=== PATIENT | male | born 1955 | race Caucasian/White ===

== ENCOUNTER → 2017-02-26 14:24 | Outpatient (CLI) | payer MEDICARE ==
[~2017-02-26 14:24] MED LIST: CENTRUM SILVER1 TA1 PO; GLUCOPHAGE500 MG PO; HYDROCODON-ACE1 EAC7 PO
[2017-02-26 15:13] LABS: BASOPHILS 0.9 % (0-2); EOSINOPHILS 3.4 % (0-7); HEMATOCRIT 40.1 % (42.0-54.0); HEMOGLOBIN 13.9 g/dL (13.5-17.5); IMMATURE GRANULOCYTES 0.2 % (0-5); LYMPHOCYTES 22.6 % (15-50); MCH 32.5 pg (26.0-34.0); MCHC 34.7 g/dL (31.0-37.0); MCV 93.7 fL (80.0-100.0); MEAN PLATELET VOLUME 10.8 fL (7.4-10.4); MONOCYTES 8.4 % (2-11); NEUTROPHILS 64.5 % (40-80); PLATELET COUNT 264 10x3/uL (130-400); RBC 4.28 10x6/uL (4.20-6.10); RDW 12.6 % (11.5-14.5); WBC 5.6 10x3/uL (4.8-10.8)
[2017-02-26 15:32] LABS: CALC OSMOLALITY 279 mosm/kg (275-300); CALCIUM 9.2 mg/dL (8.5-10.1); CARBON DIOXIDE 26.8 mmol/L (21.0-32.0); CHLORIDE - SERUM 104 mmol/L (98-107); CREATININE - SERUM 0.9 mg/dL (0.6-1.3); GLUCOSE 107 mg/dL (74-106); POTASSIUM - SERUM 3.9 mmol/L (3.5-5.1); SODIUM 141 mmol/L (136-145); UREA NITROGEN 11 mg/dL (7-18); eGFR NON AFRICAN AMERICAN > 90 mL/min (90-120)
[2017-02-27 10:19] LABS: HEPATITIS C ANTIBODY <0.1 (0.0-0.9)
[2017-02-27 12:15] LABS: CEA 1.7 ng/mL (0.0-4.7)
[2017-03-07 23:40] VITALS: BMI 34.4
== END | disposition home or self-care (01) ==
LOC: D.LAB 14:24 → D.CT 16:30
PROVIDERS: Surgery
DX: C21.8 Malignant neoplasm of overlapping sites of rectum, anus and anal canal (principal); K43.2 Incisional hernia without obstruction or gangrene; R53.83 Other fatigue

== ENCOUNTER 2017-03-07 08:16 | Inpatient (IN) | payer MEDICARE ==
[~2017-03-07] VITALS: Ht 182.9 cm; Wt 115.0 kg
[~2017-03-07 08:16] MED LIST changes: -HYDROCODON-ACE1 EAC7 PO
[2017-03-07 09:09] VITALS: BP 142/85; BMI 34.4
[2017-03-07 09:22] LABS: INR 0.95 (0.85-1.17); PROTIME 12.5 SECONDS (11.6-15.0)
[2017-03-07 09:33] LABS: BASOPHILS 1.1 % (0-2); EOSINOPHILS 4.3 % (0-7); HEMATOCRIT 39.9 % (42.0-54.0); IMMATURE GRANULOCYTES 0.2 % (0-5); LYMPHOCYTES 23.5 % (15-50); MCH 32.8 pg (26.0-34.0); MCHC 35.1 g/dL (31.0-37.0); MCV 93.4 fL (80.0-100.0); MONOCYTES 7.5 % (2-11); NEUTROPHILS 63.4 % (40-80); PLATELET COUNT 268 10x3/uL (130-400); RBC 4.27 10x6/uL (4.20-6.10); RDW 12.5 % (11.5-14.5); WBC 4.4 10x3/uL (4.8-10.8)
--- NOTE | 2017-03-07 14:23 | NUR ---
1423 ATTEMPTED TO FIND FAMILY NOT IN PATIENTS ROOM OR WAITING ROOMS
--- NOTE | 2017-03-07 15:27 | NUR ---
PeggyN. RELIEVED AT 1521
--- NOTE | 2017-03-07 17:12 | NUR ---
1705 BACK FROM LAPAROSCOPIC HERNIA REPAIR. ALERT AND ORIENTED. PAIN LEVEL TO ABDOMEN DEEP TIGHTNES PAIN. HAS LEFT COLOSTOMY BAG THAT WAS CHANGED IN SURGERY. 7 [address] RT AND LT ABDOMEN DERMA BONDED NO BLEEDING. C/L IN REACH.
--- NOTE | 2017-03-07 17:25 | NUR ---
1710 OFFERED PAIN MED DENIED NEED FOR PAIN MED STATED " THE PAIN IS ACTUALLY BETTER MORE OF A TIGHTNESS." STATED JUST WANTS TO CLOSE EYES ICE CHIPS GIVEN.
--- NOTE | 2017-03-07 17:35 | NUR ---
1725 TEMP CHECKED 98.1.
--- NOTE | 2017-03-07 17:51 | NUR ---
1735 EYES CLOSED EASILY ROUSES TO VERBALLY STIMULI WANTS TO SLEEP OFFERED CLEAR LIQUIDS REFUSES WANTS TO SLEEP.
--- NOTE | 2017-03-07 18:04 | NUR ---
1803 PAIN LEVEL IS A 4 STATES NO PAIN LONG HE DOESN'T MOVE. 4 WITH MOVEMENT TIGHTNESS ACHY IN ABDOMEN. OFFERED PAIN MEDS BUT DENIED THE NEED FOR THEM TOOK IN SOME CLEAR LIQUIDS WATER. 30 CC. ASSISTED WITH URINE AND VOIDED 800 CC YELLOW URINE. COLOR PINK. INCISION SITES WITH NO BLEEDING.
--- NOTE | 2017-03-07 18:36 | NUR ---
1829 MEDICATED WITH TORODOL 15MG FOR PAIN.
--- NOTE | 2017-03-07 18:47 | NUR ---
1747 PAIN LEVEL 4.
--- NOTE | 2017-03-07 18:48 | NUR ---
1747 TEMP 98.4.
--- NOTE | 2017-03-07 19:09 | NUR ---
1847 pain level a 3, after torodol,dozing with eyes closed.
--- NOTE | 2017-03-07 19:20 | NUR ---
1914 eyes closed no distress noted.
--- NOTE | 2017-03-07 19:28 | NUR ---
192 repositioned in bed propped to left side. encouraged to cough and deep breathe.
--- NOTE | 2017-03-07 19:41 | NUR ---
1935 PT TOOK OUT PILLOWN THAT HAD HIM PROPPED OVER STATED WAS UNCOMFORTABLE THAT WAY. TOLD PATIENT NEEDS TO TURN EVERY 2 HOURS TO PREVENT FROM GETTING BED SORES AND COUGH DEEP BREATHE OFTEN TO NOT GET PNEUMONIA POST OP. TOOK IN SOME LEMONLIME OFFERED ADA REFUSED. TEMP 98.5 ORAL.
--- NOTE | 2017-03-07 19:53 | NUR ---
1952 REPORT TO DIANN HARRISON R.N.
--- NOTE | 2017-03-07 20:19 | NUR ---
2012 TRANSFERRED TO ROOM 2237.
--- NOTE | 2017-03-07 23:12 | OP ---
PATIENT NAME: REMIGIO BEARD MEDICAL RECORD: [id number] :[birth year] LOCATION:[facility] ADMISSION DATE:03/07/17 SURGEON: MARY SMALLS MD DATE OF OPERATION: 03/07/2017 DATE OF OPERATION: 03/07/2017 SURGEON: Mary Smalls MD PREOPERATIVE DIAGNOSES: 1. Parastomal hernia. 2. History of rectal cancer. POSTOPERATIVE DIAGNOSES: 1. Parastomal hernia. 2. History of rectal cancer. PROCEDURE PERFORMED: 1. Laparoscopic parastomal hernia repair with Oradell mesh. 2. Laparoscopic lysis of adhesions. ANESTHESIA: General. COMPLICATIONS: None. SPECIMENS: None. Case was clean. ESTIMATED BLOOD LOSS: 50 cc. OPERATIVE COURSE: After consent was obtained, the patient was taken to the operating room and placed in the supine position on the operating table. Next, general anesthesia was given via endotracheal intubation. Thereafter, a timeout was performed, confirmed the correct patient and procedure. The abdomen was prepped and draped in typical sterile fashion and the ostomy was covered with a sterile Ray-Alexey and Ioban dressing. Local anesthetic was injected into right upper quadrant and midclavicular line. A stab incision was made with 11-blade scalpel. Using a 5-mm bladeless optical trocar, the abdomen was entered under direct laparoscopic vision. Adequate pneumoperitoneum was achieved. The abdominal cavity was inspected. No evidence of bowel injury. No evidence of bleeding. Two additional trocars were then placed under direct laparoscopic vision, two 5-mm trocars into the right lower and right medial quadrants. Next, laparoscopic lysis of adhesions was performed. The patient had a previous abdominal perineal resection for history of rectal cancer. The patient had significant adhesions at the midline incision as well as a large hernia sac at the parastomal hernia. Greater than 50% of the case was spent on laparoscopic lysis of adhesions as well as excision of the hernia sac at the parastomal hernia. This was performed with a combination of blunt dissection, sharp scissor dissection as well as Harmonic scalpel. Once the adhesions were cleared from the anterior abdominal wall, #1 Prolene on a Ankur-Chary was used to reapproximate the hernia defect around the ostomy with interrupted [id number]. Once the hernia defect was loosely reapproximated, a laparoscopic Sugarbaker parastomal hernia repair was performed using Oradell DualMesh. Stay sutures were placed on the DualMesh. The mesh was placed in the OPERATIVE REPORT [id number] REMIGIO BEARD abdomen using the Ankur-Chary suture passer and the sutures were passed transabdominally and the mesh was loosely placed along the colon, ascending colon, the colostomy out laterally. The remaining portion of the mesh was secured with the ProTack device, making sure to place the mesh with minimal tautness over the colon. Once this was complete, the abdominal cavity was copiously irrigated and suctioned. The small bowel was run from the terminal ileum to the ligament of Treitz. There was no evidence of bowel injury, no evidence of bleeding, no evidence of bile leakage or succus. The abdomen was again suctioned and irrigated. At this time, all remaining instruments were removed. The abdomen was desufflated. Trocars were removed. Skin incisions were closed with 4-0 Monocryl, Mastisol and Steri-Strips. At the end of the case, all needle and instrument counts were correct. No complications occurred. The patient was extubated and transferred to the PACU in stable condition. TRANSINT:[id number] Voice Confirmation ID: [id number] DOCUMENT ID: [id number] MARY SMALLS MD at 2312 CC: [id number] DICTATION DATE: 03/07/17 155 OIL SEPARATOR: 03/07/17 1709 ADM IN [place] [id number] [place] [address]
[2017-03-07 23:40] VITALS: BP 153/90; Ht 182.9 cm; Wt 115.0 kg
[2017-03-08 01:20] VITALS: BP 147/82
[2017-03-08 05:25] LABS: BASOPHILS 0.4 % (0-2); EOSINOPHILS 1.5 % (0-7); HEMATOCRIT 38.2 % (42.0-54.0); HEMOGLOBIN 12.8 g/dL (13.5-17.5); IMMATURE GRANULOCYTES 0.3 % (0-5); LYMPHOCYTES 9.8 % (15-50); MCH 31.4 pg (26.0-34.0); MCHC 33.5 g/dL (31.0-37.0); MCV 93.9 fL (80.0-100.0); MEAN PLATELET VOLUME 10.6 fL (7.4-10.4); MONOCYTES 8.5 % (2-11); NEUTROPHILS 79.5 % (40-80); PLATELET COUNT 253 10x3/uL (130-400); RBC 4.07 10x6/uL (4.20-6.10); RDW 12.5 % (11.5-14.5)
[2017-03-08 05:35] LABS: WBC 7.3 10x3/uL (4.8-10.8)
[2017-03-08 05:45] LABS: ALBUMIN 2.9 g/dL (3.4-5.0); ALKALINE PHOSPHATASE 54 U/L (46-116); ALT (SGPT) 32 U/L (10-68); CALC OSMOLALITY 276 mosm/kg (275-300); CALCIUM 8.1 mg/dL (8.5-10.1); CHLORIDE - SERUM 104 mmol/L (98-107); CREATININE - SERUM 0.9 mg/dL (0.6-1.3); GLUCOSE 128 mg/dL (74-106); POTASSIUM - SERUM 3.6 mmol/L (3.5-5.1); SODIUM 138 mmol/L (136-145); UREA NITROGEN 9 mg/dL (7-18); eGFR NON AFRICAN AMERICAN > 90 mL/min (90-120)
[2017-03-08 05:48] VITALS: BP 166/92
--- NOTE | 2017-03-08 06:30 | NUR ---
REPORT RECIEVED, ASSUMED CARE OF PT. RESTING, EASILY AROUSED. NO NEEDS VOICED AT THIS TIME. L FOREARM IV INFUSING FLUIDS ORDERED, DRSG C/D/I. BED IN LOWEST POSITION, SIDE RAILS UP X 2, CALL LIGHT WITHIN REACH.
[2017-03-08 09:42] VITALS: BP 166/94
--- NOTE | 2017-03-08 10:17 | NUR ---
Patient Name: REMIGIO BEARD Admission Status: Elective Accout number: [id number] Admission Date: 03-07-2017 : 1955 Admission Diagnosis: Attending: MARY SMALLS Current LOS: 1 Anticipated DC Date: 03-12-2017 Planned Disposition: Home Primary Insurance: MEDICARE A & B Discharge Planning Comments: CM MET WITH PATIENT REGARDING D/C NEEDS AND PLANS. PATIENT STATED HE LIVES WITH HIS IN A [place] WHILE HOUSE IS BEING RENOVATED. PATIENT HAS A RAMP TO ENTER HOME AND HAS 3 STEPS INSIDE. PATIENT IS INDEPENDENT WITH HIS CARE AND HAS A WALKER AT HOME. PATIENTS PCP IS DR. ARNOLD IN [place] AND PHARMACY IS [facility]. PATIENT IS REFUSING HOME HEALTH. CM WILL CONTINUE TO FOLLOW PATIENT WITH D/C NEEDS AND PLANS. PCP DR[facility]- [phone] YANELIS () [phone] Quantometer Operator: Carolinegloria Sanabriamel Is the patient Alert and Oriented? Yes 0 * How many steps to enter\exit or inside your home? 3 W/RAILS 0 * PCP DR. CLAYTON BRAMBILA 0 * Pharmacy [facility] 0 * Preadmission Environment Home with Family 0 * ADLs Independent 0 * Equipment Walker 0 * List name and contact numbers for known caregivers / representatives who currently or will assist patient after discharge: YANELIS () [phone] 0 * Community resources currently utilized None 0 * Additional services required to return to the preadmission environment? Yes 0 * Can the patient safely return to the preadmission environment? Yes 0 * Has this patient been hospitalized within the prior 30 days at any hospital? No 0 Grand Total: 0
[2017-03-08 13:05] VITALS: BP 140/82
[2017-03-08 16:00] VITALS: BP 166/92
[2017-03-08 21:20] VITALS: BP 144/83
[2017-03-09 00:56] VITALS: BP 174/88
--- NOTE | 2017-03-09 03:44 | NUR ---
ASSESSED, AT THE BEGINNING OF THE SHIFT. VERY PLEASANT, ABLE TO VERBALIZE NEEDS. HE HAS A COLOSTOMY IN PLACE WHICH HE IS HAVING A LOT OF AIR IN AND KEEPS IT BURPED. THERE IS A URINAL AT THE BEDSIDE WHICH HE USES. AT THE BEGINNING OF THE SHIFT HE WAS IN A CHAIR FOR ABOUT AN HOUR AND THEN WE WALKED AROUND THE NURSES STATION THREE TIMES. WHERE HE HAD HIS HERNIA REPAIR HAS ABOUT SEVEN INSIONS SITES OF VARIOUS SIZES WHICH ALL LOOK GOOD. HE DID HAVE A LOW GRAD TEMP AT MIDNIGHT AND WE WILL ADRESS IT IS IT IS HIGHER AT THE 4 OCLOCK VITAL SIGNS. THE BED IS LOW, RAILS UP X'S 2 WITH THE CALL LIGHT AT HAND.
[2017-03-09 04:52] VITALS: BP 167/92
--- NOTE | 2017-03-09 07:10 | NUR ---
REPORT RECEIVED, ASSUMED CARE OF PT. SITTING UP IN CHAIR, RESTING, EASILY AROUSED. L FOREARM IV INFUSING ORDERED, DRSG C/D/I. L COLOSTOMY IN PLACE. NO NEEDS VOICED AT THIS TIME.
[2017-03-09 08:36] VITALS: BP 146/91
--- NOTE | 2017-03-09 10:30 | NUR ---
PT AMBULATED X 5 LAPS AROUND NURSES STATION
[2017-03-09] MEDS ORDERED: HYDROCODON-ACE1 EAC7 PO (11:31)
[2017-03-09 12:14] VITALS: BP 155/85
--- NOTE | 2017-03-09 12:28 | NUR ---
CM REASSESSMENT NOTE: PATIENT IS DISCHARGING BACK HOME TODAY/SON DRIVING HIM. PATIENT REFUSED HOME HEALTH AND HAD NO OTHER NEEDS FOR DISCHARGE.
--- NOTE | 2017-03-09 13:00 | NUR ---
L FOREARM IV D/C'D, BLEED CONTROL, BANDAGE APPLIED.
--- NOTE | 2017-03-09 13:06 | NUR ---
DISCHARGE INSTRUCTIONS GIVEN TO PT, VERBALIZED UNDERSTNADING AND SIGNED.
--- NOTE | 2017-03-09 15:24 | NUR ---
PT DISCHARGED FROM FLOOR VIA WHEELCHAIR WITH HOSPITAL STAFF AND FAMILY TO FAMILY VEHICLE. ALL PERSONAL BELONGINGS WITH PT.
== END 2017-03-09 15:25 | disposition home or self-care (01) | DRG 337 ==
LOC: D.SDCHOLD 08:16 → D.MS 08:16 → D.PAN 10:45 → EDSTATUS 10:45 → D.OPS 10:45 → D.SDCHOLD 10:45 → D.MS 20:24
PROVIDERS: Anesthesiology; ADMIT Surgery
PROC: 0DNW4ZZ Release Peritoneum, Percutaneous Endoscopic Approach (ICD-10-PCS; 2017-03-07)
PROC: 0WUF4JZ Supplement Abdominal Wall with Synthetic Substitute, Percutaneous Endoscopic Approach (ICD-10-PCS; principal; 2017-03-07 12:00)
DX: K43.5 Parastomal hernia without obstruction or gangrene (principal); K66.0 Peritoneal adhesions (postprocedural) (postinfection); Z85.048 Personal history of other malignant neoplasm of rectum, rectosigmoid junction, and anus

== ENCOUNTER → 2017-05-03 09:52 | Outpatient (CLI) | payer MEDICARE ==
[2017-03-07 23:40] VITALS: BMI 34.4
[~2017-05-03 09:52] MED LIST changes: +HYDROCODON-ACE1 EAC7 PO
== END | disposition home or self-care (01) ==
LOC: D.CT 09:52
DX: K43.2 Incisional hernia without obstruction or gangrene (principal)

== ENCOUNTER → 2018-07-30 12:22 | Outpatient (CLI) | payer MEDICARE ==
[2017-03-07 23:40] VITALS: BMI 34.4
[~2018-07-30 12:22] MED LIST changes: +AUGMENTIN 875-11 TAB PO; +COZAAR50 MG PO; +FISH OIL 1,0001 CA1 PO; +GLUCOTROL XL 5 M5 MG PO; +LOPRESSOR25 MG PO; +PRAVACHOL20 MG PO
== END | disposition home or self-care (01) ==
LOC: D.CT 12:22
PROVIDERS: ATTEND Surgery
DX: K43.3 Parastomal hernia with obstruction, without gangrene (principal)

== ENCOUNTER 2018-08-02 05:08 | Inpatient (IN) | payer MEDICARE ==
[~2018-08-02] VITALS: Ht 185.4 cm; Wt 75.9 kg
[~2018-08-02 05:08] MED LIST changes: -AUGMENTIN 875-11 TAB PO; -PRAVACHOL20 MG PO
[2018-08-02 05:56] LABS: CALC OSMOLALITY 283 mosm/kg (275-300); CALCIUM 8.7 mg/dL (8.5-10.1); CARBON DIOXIDE 21.9 mmol/L (21.0-32.0); CHLORIDE - SERUM 104 mmol/L (98-107); CREATININE - SERUM 0.8 mg/dL (0.6-1.3); SODIUM 138 mmol/L (136-145); UREA NITROGEN 12 mg/dL (7-18); eGFR NON AFRICAN AMERICAN > 90 mL/min (90-120)
[2018-08-02 05:57] LABS: APTT 25.6 SECONDS (22.8-39.4); BASOPHILS 1.5 % (0-2); EOSINOPHILS 4.7 % (0-7); HEMATOCRIT 41.4 % (42.0-54.0); HEMOGLOBIN 14.5 g/dL (13.5-17.5); IMMATURE GRANULOCYTES 0.4 % (0-5); INR 1.03 (0.85-1.17); MCH 31.7 pg (26.0-34.0); MCV 90.6 fL (80.0-100.0); MEAN PLATELET VOLUME 11.5 fL (7.4-10.4); MONOCYTES 10.9 % (2-11); NEUTROPHILS 64.5 % (40-80); PLATELET COUNT 278 10x3/uL (130-400); RBC 4.57 10x6/uL (4.20-6.10); RDW 12.7 % (11.5-14.5); WBC 5.3 10x3/uL (4.8-10.8)
[2018-08-02 06:01] LABS: GLUCOSE 244 mg/dL (74-106)
[2018-08-02] MEDS ORDERED: PRAVACHOL20 MG PO (06:57)
[2018-08-02 07:19] VITALS: BP 132/83; BMI 35.3
--- NOTE | 2018-08-02 13:59 | NUR ---
PT HAS NG TUBE, CONFIRED VIA AUSCULTATION AND X-RAY. WOUND VAC ON PT'S STOMACH ALARMING DUE TO BLOCKAGE. WOUND CARE NURSE MANISH HOLLIDAY CONTACTED FOR CARE OF SITE.
[2018-08-02 14:43] VITALS: BP 140/90
--- NOTE | 2018-08-02 14:45 | OP ---
PATIENT NAME: REMIGIO BEARD MEDICAL RECORD: [id number] :[birth year] LOCATION:[facility] ADMISSION DATE: SURGEON: MARY SMALLS MD DATE OF OPERATION: 08/02/2018 SURGEON: Mary Smalls MD PREOPERATIVE DIAGNOSES: 1. Recurrent incarcerated parastomal hernia. 2. History of rectal cancer. 3. History of abdominoperineal resection. 4. Hypertension. POSTOPERATIVE DIAGNOSES: 1. Incarcerated incisional hernia. 2. Incarcerated parastomal hernia. 3. Significant lysis of adhesions. PROCEDURE PERFORMED: Laparoscopic lysis of adhesions and reduction of incarcerated incisional and parastomal hernia. Laparoscopic mobilization of splenic flexure. Incarcerated incisional hernia repair with Phasix mesh. Relocation of colostomy and negative pressure wound therapy greater than 50 square cm. ANESTHESIA: General. COMPLICATIONS: None. SPECIMENS: Colon, partial colectomy. Case was contaminated. OPERATIVE COURSE: After consent was obtained, the patient was taken to the operating room and placed in the supine position on the operating table. Next, general anesthesia was given via endotracheal intubation after a timeout was performed to confirm the correct patient and procedure. The abdomen was prepped and draped in typical sterile fashion and Ioban dressing was placed. Local anesthetic was injected in the right upper quadrant. Skin incision was made with an 11-blade scalpel. Using a 5-mm bladeless optical trocar, the abdomen was entered under direct laparoscopic vision. Adequate pneumoperitoneum was achieved. The abdominal cavity was inspected. No evidence of bowel injury or bleeding. Two additional 5-mm trocars were placed in the right lateral and lower quadrants under direct laparoscopic vision. Extensive lysis of adhesions was performed. There were 2 distinct hernias. There was an incarcerated incisional midline hernia with multiple loops of small bowel, which were sharply dissected using Metzenbaum scissors. The previous parastomal hernia repair was no longer intact. The mesh had completely ripped out of the abdominal wall along the entire length of the lower border of the mesh. There were 2 loops of incarcerated small bowel alongside a parastomal hernia consistent with the preoperative CT findings. The incisional hernia was also noted on preoperative CT scanning. At this time, the hernia defect, there was a small bridge of intact fascia between the midline incisional hernia defect and the parastomal and the ostomy site. At this time, it was decided that this defect could not be reapproximated and closed laparoscopically. At this time, we decided to convert the case to laparotomy. The lower midline incision was made from the umbilicus OPERATIVE REPORT [id number] REMIGIO BEARD to the pubic tubercle using a 15-blade scalpel. Dissection continued with electrocautery until the fascia was identified. The fascia was incised with electrocautery and the remaining portion of the fascia was then opened under direct vision. Next, the colostomy site was taken down. A stapler was fired across the colostomy. Significant additional lysis of adhesions was performed to free the colostomy up from the parastomal hernia. Once this was complete, it was retracted into the abdomen. Prior to laparotomy, the left colon was mobilized along the pericolic gutter to the level of the splenic flexure to allow for adequate length on relocation of the colostomy. At this time, the colostomy site was closed with a #1 looped PDS. Abdominal flaps were created. The subcutaneous tissue was dissected off the anterior fascia, 10 cm in all directions. All old previous hernia sacs were excised. The small bowel was run from the ligament of Treitz to the terminal ileum. There was no small bowel injuries noted, this was performed twice. Additional interloop lysis of adhesions was performed using sharp Metzenbaum scissor dissection. The abdomen was then copiously irrigated with 3 liters of warm normal saline and a new colostomy site was placed in the left upper quadrant. Skin incision was made using electrocautery. Subcutaneous tissues dissected using electrocautery. A cruciate incision was made in the fascia. The muscles were gently spread apart. The peritoneum was opened. The colostomy was then delivered through the incision in the left upper quadrant. At this time, after excision of all hernia sacs, the fascia was able to be closed primarily with minimal tension using #1 looped PDS. At this time, Phasix mesh was placed in an onlay fashion across the anterior fascial wall and secured in place using 3-0 Vicryl suture. A wound VAC was placed into the midline incision on top of the Phasix mesh and placed suction with good seal. The colostomy site skin edges were excised. The colostomy site was closed. At this time, the ostomy matured in the left upper quadrant colostomy site using 3-0 Vicryl suture. Staple line was cut off using curved Maya scissors. At the end of the case, all needle and instrument counts were correct. No complications occurred. The patient was transferred to the recovery room in satisfactory condition. TRANSINT:[id number] Voice Confirmation ID: [id number] DOCUMENT ID: [id number] MARY SMALLS MD at 1445 CC: [id number] DICTATION DATE: 08/02/18 1328 SKIN TOGGLER: 08/02/18 1438 REG [place] [id number]
--- NOTE | 2018-08-02 14:49 | NUR ---
RECEIVED PT FROM RECOVERY VIA BED TO ROOM 2226. PT RESTING WITH EYES CLOSED. OPENS EYES SPONTANEOUSLY. NG TUBE TO LEFT NARE TO LOW INTERMITTENT SUCTION. O2 @ 4L NC IN PLACE. IV TO LEFT FOREARM PATENT WITHOUT REDNESS OR EDEMA. OSTOMY TO LEFT UPPER QUAD, NO DRAINAGE AT THIS TIME. MIDLINE INCISION FROM UMBILICUS TO PUBIC FANTA INTACT, EDGES WELL APPROXIMATED. TRANSVERSE INCISION TO LEFT LOWER QUAD WITH FANTA INTACT, NO DRAINIAGE, EDGES WELL APPROXIMATED. WOUND VAC INTACT TO INCISION BELOW UMBILICUS DRAINING SEROSANGEOUNOUS DRAINAGE. F/C PATENT TO GRAVITY DRAINING YELLOW URINE. ORIENTED TO ROOM, CL, AND BED CONTROLS. ENCOURAGED TO CALL WITH NEEDS. CL WITHIN REACH. WILL CONTINUE TO MONITOR.
[2018-08-02 17:30] VITALS: BP 140/90; BMI 35.3
--- NOTE | 2018-08-02 19:47 | NUR ---
RECEIVED REPORT, ASSUMED CARE, SLEEPING, AROUSED EASILY TO VOICE, DENIES NEEDS, BED LOWEST POSITION, WOUND VAC ON, CALL LIGHT IN REACH, WILL CONTINUE POC
[2018-08-02 20:01] VITALS: BP 151/95
[2018-08-03 01:25] VITALS: BP 114/69
--- NOTE | 2018-08-03 04:43 | NUR ---
I have reviewed this patient and I concur with the Shift Assessment completed by the Licensed Practical Nurse today this shift.
[2018-08-03 04:57] VITALS: BP 126/79
[2018-08-03 05:35] LABS: BASOPHILS 0.2 % (0-2); EOSINOPHILS 0.1 % (0-7); HEMATOCRIT 36.8 % (42.0-54.0); HEMOGLOBIN 12.4 g/dL (13.5-17.5); IMMATURE GRANULOCYTES 0.3 % (0-5); LYMPHOCYTES 5.3 % (15-50); MCH 31.6 pg (26.0-34.0); MCHC 33.7 g/dL (31.0-37.0); MEAN PLATELET VOLUME 11.6 fL (7.4-10.4); MONOCYTES 6.2 % (2-11); NEUTROPHILS 87.9 % (40-80); PLATELET COUNT 258 10x3/uL (130-400); RBC 3.93 10x6/uL (4.20-6.10); RDW 12.7 % (11.5-14.5)
[2018-08-03 05:41] LABS: MCV 93.6 fL (80.0-100.0); WBC 10.5 10x3/uL (4.8-10.8)
[2018-08-03 06:18] LABS: ALBUMIN 2.7 g/dL (3.4-5.0); BILIRUBIN - TOTAL 1.35 mg/dL (0.2-1.3); CALCIUM 7.6 mg/dL (8.5-10.1); CARBON DIOXIDE 20.2 mmol/L (21.0-32.0); POTASSIUM - SERUM 4.2 mmol/L (3.5-5.1); PROTEIN - SERUM 6.3 g/dL (6.4-8.2)
[2018-08-03 06:22] LABS: CREATININE - SERUM 1.1 mg/dL (0.6-1.3)
--- NOTE | 2018-08-03 08:00 | NUR ---
ASSESSMENT PER FLOW SHEET. PT IS WITHOUT DISTRESS.MONITOR FOR NEEDS
[2018-08-03 09:06] VITALS: BP 133/80
[2018-08-03 13:53] VITALS: BP 138/83
[2018-08-03 14:50] VITALS: Ht 185.4 cm; Wt 75.9 kg
[2018-08-03 16:24] VITALS: BP 149/90
--- NOTE | 2018-08-03 19:30 | NUR ---
RECEIVED REPORT, ASSUMED CARE, PT VOMITING, NGT NOT SUCTIONING WELL, CALL LIGHT IN REACH, PHENEGRAN OFFERED, BED LOWEST POSITION, WILL CONTINUE TO MONITOR
--- NOTE | 2018-08-03 19:32 | NUR ---
REMAINS WITHOUT NEEDS,WITHOUT CHANGE. CONT PLAN OF CARE
[2018-08-03 19:35] VITALS: BP 149/96
[2018-08-04] VITALS: BP 158/98
--- NOTE | 2018-08-04 02:12 | NUR ---
PT VOMITING AGAIN, 200CC
--- NOTE | 2018-08-04 03:15 | NUR ---
I have reviewed this patient and I concur with the Shift Assessment completed by the Licensed Practical Nurse today this shift.
[2018-08-04 04:00] VITALS: BP 148/100
[2018-08-04 04:44] LABS: BASOPHILS 0.1 % (0-2); EOSINOPHILS 0.2 % (0-7); HEMATOCRIT 35.6 % (42.0-54.0); HEMOGLOBIN 12.1 g/dL (13.5-17.5); IMMATURE GRANULOCYTES 0.3 % (0-5); LYMPHOCYTES 4.7 % (15-50); MCV 94.2 fL (80.0-100.0); MEAN PLATELET VOLUME 11.4 fL (7.4-10.4); MONOCYTES 6.5 % (2-11); NEUTROPHILS 88.2 % (40-80); PLATELET COUNT 262 10x3/uL (130-400); RBC 3.78 10x6/uL (4.20-6.10); RDW 12.9 % (11.5-14.5); WBC 11.2 10x3/uL (4.8-10.8)
[2018-08-04 04:58] LABS: ANION GAP 19.4 mmol/L (8-16); CALCIUM 8.7 mg/dL (8.5-10.1); CARBON DIOXIDE 22.6 mmol/L (21.0-32.0); CREATININE - SERUM 1.1 mg/dL (0.6-1.3)
--- NOTE | 2018-08-04 05:09 | NUR ---
VOMITED 300ML OUT, NGT KEEPS GETTING CLOGGED
--- NOTE | 2018-08-04 06:07 | NUR ---
VOMITED 300ML, NGT HAS NO RISIDUAL, PT STATED HE WAS CHOKING ON PHLEM WHEN VOMITING
--- NOTE | 2018-08-04 08:00 | NUR ---
ASSESSMENT PER FLOW SHEET. PT IS WITHOUT DISTRESS. NGT TO LIWS AND PULLING DARK DRAINAGE IN CANISTER, APROX 600CC. PT STATES FEELING BETTER THIS AM.
--- NOTE | 2018-08-04 09:00 | NUR ---
DECLINES IV MEDS,SAYS THEY MAKE HIM SICK. DECLINES LOVENOX INJECTION.
[2018-08-04 09:08] VITALS: BP 138/88
--- NOTE | 2018-08-04 11:22 | NUR ---
1100CC OF DARK COLORED DRAINAGE EMPTIED FROM NG CANISTER.
--- NOTE | 2018-08-04 12:11 | NUR ---
PT UP AT BEDSIDE. HE IS WITHOUT DISTRESS. SAYS NGT IS NOT PULLING OUT ENOUGH. ANOTHER 400CC OF DARK DRAINAGE IN CANISTER. COUGHING UP CLEAR THICK MUCOUS. IS TO BEDSIDE AND INSTRUCTED.SCD'S IN PLACE,BUT PATIENT COMPLAINING OF HOSES. MONITOR
[2018-08-04 13:36] VITALS: BP 145/94
--- NOTE | 2018-08-04 15:18 | NUR ---
SITTING UP IN BED,WITHOUT DISTRESS.MONITOR FOR NEEDS
--- NOTE | 2018-08-04 17:44 | NUR ---
PT IS SLEEPING WITHOUT SIGNS OF DISTRESS.REMAINS WITHOUT CHANGE FROM INITIAL SHIFT ASSESSMENT.CONT PLAN OF CARE
[2018-08-04 18:14] VITALS: BP 156/95
--- NOTE | 2018-08-04 19:30 | NUR ---
RECEIVED REPORT, ASSUMED CARE, A&O, NGT LIWS DARK RED OUT PUT, DENIES NEEDS, BED LOWEST POSITION, CALL LIGHT IN REACH, WILL CONTINUE TO MONITOR
[2018-08-04 20:00] VITALS: BP 150/88
[2018-08-05] VITALS: BP 148/91
[2018-08-05 04:00] VITALS: BP 156/93
--- NOTE | 2018-08-05 04:00 | NUR ---
I have reviewed this patient and I concur with the Shift Assessment completed by the Licensed Practical Nurse today this shift.
[2018-08-05 06:39] LABS: ANION GAP 25.3 mmol/L (8-16); CARBON DIOXIDE 25.1 mmol/L (21.0-32.0); POTASSIUM - SERUM 3.4 mmol/L (3.5-5.1)
[2018-08-05 06:45] LABS: CREATININE - SERUM 1.5 mg/dL (0.6-1.3)
--- NOTE | 2018-08-05 07:42 | NUR ---
PT RESTING IN BED WITH HOB ELEVATED. REPORTS PAIN 4/10 AT THIS TIME. NG TO TO RIGHT NARE TO LOW INTERMITTENT SUCTIONING, DRAINING DARK DRAINAGE. HR AT THIS TIME 130 PRN MEDICATIONS ADMINISTERED PER MD ORDERS, BP 160/102 PRN BP MEDICATION ADMINISTERED PER MD ORDER. IV TO LEFT WRIST WITH NS BOLUS INFUSING VIA PUMP AT THIS TIME. LAP INCISION TO RIGHT LOWER QUAD INTACT, MIDLINE INCICISION WITH WOUND VAC IN PLACE, TRANSVERSE INCISION INTACT WITH FANTA. COLOSTOMY PINK AND PATENT WITH SMALL AMOUNT OF DARK GREEN DRAINAGE. F/C PATENT TO GRAVITY. DENIES FURTHER NEEDS AT THIS TIME. CL WITHIN REACH. ENCOURAGED TO CALL WITH NEEDS. CONTINUE POC
[2018-08-05 07:44] LABS: BASOPHILS 0.1 % (0-2); EOSINOPHILS 0.1 % (0-7); HEMATOCRIT 38.5 % (42.0-54.0); HEMOGLOBIN 12.6 g/dL (13.5-17.5); IMMATURE GRANULOCYTES 0.3 % (0-5); LYMPHOCYTES 3.9 % (15-50); MCH 31.6 pg (26.0-34.0); MCHC 32.7 g/dL (31.0-37.0); MONOCYTES 4.7 % (2-11); NEUTROPHILS 90.9 % (40-80); RBC 3.99 10x6/uL (4.20-6.10); RDW 13.7 % (11.5-14.5)
[2018-08-05 07:45] LABS: MCV 96.5 fL (80.0-100.0); PLATELET COUNT 373 10x3/uL (130-400); WBC 14.8 10x3/uL (4.8-10.8)
[2018-08-05 09:01] VITALS: BP 155/100
[2018-08-05 12:57] VITALS: BP 131/86
--- NOTE | 2018-08-05 13:05 | NUR ---
Wound vac dressing change with Dr. Lozano Abdominal incision measures 15cm x 20cm x 8cm (total) outer incision 7cm x5cm Wound bed is red and has moderate amount of serosanguinous drainage. No odor. 1 piece of black foam was used. Settings: -125mmgh moderate continuous Pt tolerated well.
--- NOTE | 2018-08-05 14:18 | NUR ---
NUTRITION F//U PT REMAINS NPO WITH NG TUBE. WILL PROVIDE DIET WHEN ADVANCED, MONITOR PT PROGRESS. RD FOLLOWING
[2018-08-05 16:38] VITALS: BP 123/81
[2018-08-05 19:18] LABS: ANION GAP 17.2 mmol/L (8-16); CALCIUM 9.9 mg/dL (8.5-10.1); CARBON DIOXIDE 30.4 mmol/L (21.0-32.0); CREATININE - SERUM 2.2 mg/dL (0.6-1.3)
[2018-08-05 19:22] LABS: POTASSIUM - SERUM 2.6 mmol/L (3.5-5.1)
[2018-08-05 20:00] VITALS: BP 123/86
[2018-08-05 23:27] LABS: CALCIUM 9.7 mg/dL (8.5-10.1); CARBON DIOXIDE 29.5 mmol/L (21.0-32.0); CREATININE - SERUM 2.6 mg/dL (0.6-1.3)
[2018-08-05 23:29] LABS: ANION GAP 18.4 mmol/L (8-16)
[2018-08-05 23:34] LABS: POTASSIUM - SERUM 2.9 mmol/L (3.5-5.1)
[2018-08-06 04:00] VITALS: BP 130/76
--- NOTE | 2018-08-06 04:41 | NUR ---
REC'D. IN BED NG RIGHT NARE WITH DARK BROWNISH TINGED DRAINAGE NOTED IN CANISTER.CONFUSED TO TIME SITUATION.IV LEAKING.REFUSING TO LET NURSE ASSESS. STATES CARDIAC DOC TOLD ME TO NEVER NEVER TO TAKE POTASSIUM.CALLED AND TOLD THAT NURSES ARE TRYING TO GIVE ME STUFF THAT I DON'T WANT
--- NOTE | 2018-08-06 06:13 | NUR ---
PATIENT STILL ANXIOUS CALLED NRSG STATES PATIENT CALLED HER WE ARE GOING TO ADMINISTER POTASSIUM TO KILL HIM THATS WHY THERE IS WATER IN THE SHOWER. EXPLAINED TO K+ LEVEL IS LOW AND THATS WHY HE'S GETTING POTASSIUM.IV LEAKING AT SITE RESTARTED VIA TERRY HOLLIDAY LEFT UPPER ARM X1 STICK 20G
[2018-08-06 08:46] LABS: BASOPHILS 0.1 % (0-2); EOSINOPHILS 0 % (0-7); HEMATOCRIT 35.5 % (42.0-54.0); HEMOGLOBIN 11.8 g/dL (13.5-17.5); IMMATURE GRANULOCYTES 0.4 % (0-5); LYMPHOCYTES 3.9 % (15-50); MCH 32.2 pg (26.0-34.0); MCHC 33.2 g/dL (31.0-37.0); MCV 96.7 fL (80.0-100.0); MONOCYTES 8.5 % (2-11); NEUTROPHILS 87.1 % (40-80); PLATELET COUNT 360 10x3/uL (130-400); RBC 3.67 10x6/uL (4.20-6.10); RDW 13.9 % (11.5-14.5); WBC 13.7 10x3/uL (4.8-10.8)
[2018-08-06 08:54] LABS: CALCIUM 9.4 mg/dL (8.5-10.1); CARBON DIOXIDE 30.5 mmol/L (21.0-32.0)
[2018-08-06 09:04] LABS: ANION GAP 16.5 mmol/L (8-16); CREATININE - SERUM 3.6 mg/dL (0.6-1.3)
[2018-08-06 09:34] VITALS: BP 132/80
--- NOTE | 2018-08-06 13:29 | MORECARE ---
CASE MANAGEMENT DISCHARGE SUMMARY PATIENT: REMIGIO SANDERS UNIT: [id number] ADM DATE: 08/03/18 AGE: 63 : 59 SEX: M ROOM/BED: D.2227 AUTHOR: JOSEY,DOC PHYSICIAN: REFERRING PHYSICIAN: MARY SMALLS MD DATE OF SERVICE: 08/06/18 Discharge Plan Patient Name: REMIGIO SANDERS Facility: [facility]:[place] : 1955 Planned Disposition: Home with Home Health Anticipated Discharge Date: Discharge Date: Expected LOS: Initial Reviewer: [email or web address] Initial Review Date: 08/06/2018 Generated: 08/06/18 2:29 pm Comments DCP- Discharge Planning Updated by [email or web address]: Franca Campbell on 08/06/18 12:[address] Patient Name: REMIGIO SANDERS Admission Status: Elective Accout number: [id number] Admission Date: 08-03-2018 : 1955 Admission Diagnosis:PARASTOMAL HERNIA WITH OBSTRUCTION, WITHOUT GANGRENE Attending: MARY SMALLS Current LOS: 3 Anticipated DC Date: Planned Disposition: Home with Home Health Primary Insurance: MEDICARE A & B Discharge Planning Comments: CM met with patient to discuss discharge planning, he is alone in the room. States he is unable to answer any of my questions because of his sore throat and asks me to call his . I called his for discharge planning. She states he lives independently with her. She states their son and daughter in law live on the same property in their own house. I discussed the availability of rehab services, home health and additional DME if needed. They already get ostomy supplies from [employer] in the mail. She states the plan right now is to go home with [employer] [facility] in [place]. CM will set this up closer to time. JOHN placed on chart. CM will continue to follow and assist with discharge planning/needs. Administrative Assistant: Franca Campbell DCPIA - Discharge Planning Initial Assessment Updated by [email or web address]: Franca Campbell on 08/06/18 1:25 pm * Is the patient Alert and Oriented? Yes * How many steps to enter\exit or inside your home? 0/0 * PCP Livia Lopez at [facility] in [place] * Pharmacy [facility] in [facility] * Preadmission Environment Home with Family * ADLs Independent * Equipment Ostomy Supplies * List name and contact numbers for known caregivers / representatives who currently or will assist patient after discharge: Gela Sanders - - [phone] * Verbal permission to speak to the caregivers and representatives has been obtained from the patient. Yes * Community resources currently utilized None * Please name any agencies selected above. Mail order from [employer] for Ostomy supplies * Additional services required to return to the preadmission environment? Yes * Can the patient safely return to the preadmission environment? Yes * Has this patient been hospitalized within the prior 30 days at any hospital? No Patient Name: REMIGIO SANDERS Page [id number] at 1329 All edits/amendments must be made on the electronic document DICTATION DATE: 08/06/181328 ADMINISTRATIVE ASSISTANT: AMITA 08/06/18 1329 RPT#: [id number] DC DATE: STATUS: ADM IN [facility] [address] [place] [address] END OF REPORT
[2018-08-06 15:13] LABS: CARBON DIOXIDE 29.4 mmol/L (21.0-32.0); CREATININE - SERUM 4.3 mg/dL (0.6-1.3)
[2018-08-06 15:15] LABS: ANION GAP 17.3 mmol/L (8-16)
[2018-08-06 15:16] LABS: POTASSIUM - SERUM 2.7 mmol/L (3.5-5.1)
--- NOTE | 2018-08-06 16:25 | NUR ---
SPOKE WITH EDITH FIGUEROA AND EXPLAINED PATIENT HAS TAKEN 3 K+ RIDERS ALREADY TODAY. STATED TO GIVE THE REST OF THE RIDERS AND TO CHECK POTASSIUM PER PROTCALL THEN TO CALL BACK WITH RESULTS.
[2018-08-06 18:14] VITALS: BP 127/70
--- NOTE | 2018-08-06 18:55 | NUR ---
PATIENT LESS CONFUSED THIS EVENING. NO COMPLAINTS OR PROBLEMS. IV INTACT AND TRIALYSIS INTACT. BSCDS ON AND WORKING. COMPLETED RIDERS ORDERED. PATIENT RESTING AT THIS TIME. NO SIGNS OF DISTRESS. CALL LIGHT WITHIN REACH.
--- NOTE | 2018-08-06 23:50 | NUR ---
PT REFUSING EVERYTHING SPENT THE LAST 2 HOURS IN ROOM WITH PT AFTER FINALLY AGREEING TO GET OFF PHONE WITH 911 AND AND BELIEVING THAT I'M NOT TRYING TO KILL HIM. PT STILL REFUSED HUMALIN AND FINGER STICK, THIS NURSE IS THE ONLY ONE ALLOWED IN HIS ROOM. BLOOD DRAWN FROM [facility] FOR POTASSIUM LEVEL FOR LAB. FLUIDS AND CALL LIGHT WITHIN REACH. PT CALM IN BED WITH EYES OPEN AT THIS TIME
--- NOTE | 2018-08-07 02:13 | NUR ---
PT CONTINUES TO ONLY ALLOW THIS NURSE IN ROOM, IV'S RUNNING, LAB RESULTS OF 3.1 POTASSIUM LEVEL PRN POTASSIUM GIVEN, IN BED, LOW POSITION, EYES OPEN, FLUIDS AND CALL LIGHT WITHIN REACH, ALLOWED FINGER STICK AT 0000, FSBS 103 NO INSULIN REQUIRED
--- NOTE | 2018-08-07 05:02 | NUR ---
PT REFUSES PROTONIX CONTUALLY ALL SHIFT
[2018-08-07 05:17] LABS: BASOPHILS 0.1 % (0-2); EOSINOPHILS 0.5 % (0-7); HEMATOCRIT 32.1 % (42.0-54.0); HEMOGLOBIN 10.3 g/dL (13.5-17.5); IMMATURE GRANULOCYTES 0.2 % (0-5); LYMPHOCYTES 7.4 % (15-50); MCH 31.5 pg (26.0-34.0); MCHC 32.1 g/dL (31.0-37.0); MCV 98.2 fL (80.0-100.0); MEAN PLATELET VOLUME 11.9 fL (7.4-10.4); MONOCYTES 4.1 % (2-11); NEUTROPHILS 87.7 % (40-80); RBC 3.27 10x6/uL (4.20-6.10); RDW 14.1 % (11.5-14.5)
[2018-08-07 05:55] LABS: PLATELET COUNT 280 10x3/uL (130-400); WBC 8.7 10x3/uL (4.8-10.8)
[2018-08-07 05:57] LABS: CALCIUM 8.4 mg/dL (8.5-10.1); CARBON DIOXIDE 28.8 mmol/L (21.0-32.0); CREATININE - SERUM 4.7 mg/dL (0.6-1.3); POTASSIUM - SERUM 3.2 mmol/L (3.5-5.1)
[2018-08-07 06:26] LABS: ANION GAP 18.4 mmol/L (8-16)
--- NOTE | 2018-08-07 07:39 | NUR ---
I have reviewed this patient and I concur with the Shift Assessment completed by the Licensed Practical Nurse today this shift.
--- NOTE | 2018-08-07 08:00 | NUR ---
PT RESTING IN BED WITH NG TUBE TO RIGHT NARE TO LOW INTERMITTENT SUCTIONING, DRAINING LIGHT GREEN DRAINAGE. IV TO RIGHT JUGULAR, SALINE LOC'D. F/C PATENT TO GRAVITY. DENIES PAIN AT THIS TIME. DENIES FURTHER NEEDS AT THIS TIME. CL WITHIN REACH. ENCOURAGED TO CALL WITH NEEDS. CONTINUE POC
[2018-08-07 09:37] VITALS: BP 162/93
[2018-08-07 14:03] VITALS: BP 148/80
--- NOTE | 2018-08-07 16:03 | NUR ---
Wound vac dressing changed by Dr. Lozano. Measurements remain the same. Pt tolerated well.
[2018-08-07 17:07] VITALS: BP 141/81
[2018-08-07 20:00] VITALS: BP 148/80
--- NOTE | 2018-08-07 20:16 | NUR ---
REPORT CALLED TO MEAGHAN BY KARLY ON PREVIOUS SHIFT, TRANSFERED BY BED BED TO ROOM 2109. MEAGHAN PRESENT CONFIRMS RRECIEVED REPORT
--- NOTE | 2018-08-07 20:35 | NUR ---
PT ARRIVED TO ROOM 2109, PT NG TUBE HOOKED UP TO LIS REPORTED BY NURSE. WOUND VAC INTACT, SUCTION INTACT, HOOKED INTO WALL. PT ON 2L O2 NC WITH HUMIDITY. SCD'S NOTED BUT NOT ON AT THIS TIME. PT RESPECTFULLY DECLINED. FLUIDS ARE D5W AT 125 AND LR WILL CHECK ORDERS THAN CONTINUE. PT HAS A FIRE CREW WORKER CONNECTED TO [facility], NOT CONNECTED TO PT. CHECKED ORDER AND NOTED THAT FIRE CREW WORKER WAS D/C'D ON THE . DISCONNECTED FROM [facility] AND SENT BACK WITH MED SURG NURSE. PT IS AAO, ASSIST WITH GETTING ORIENTED TO ROOM. BEDLOW AND CALL LIGHT IN REACH. PT STATES HE DOESNT NEED ANYTHING ELSE UNTIL ARRIVED. NO S/S OF DISTRESS. WILL CPOC
--- NOTE | 2018-08-07 20:48 | NUR ---
NOTED ORDER FOR REMOVAL OF NGT. PT STATED WAIT UNTIL IS IN ROOM. WILL D/C ONCE ARRIVES.
--- NOTE | 2018-08-07 23:48 | NUR ---
PT STILL NOT HERE. CHECKED IN WITH PT AND LET HIM KNOW AGAIN ABOUT THE ORDER TO REMOVE THE NGT. HE ASKED TO SEE THE ORDER. WILL PRINT IT OUT TO SHOW HIM. STATED NURSE CAN CHECK FSBS AND OTHER MEDICATIONS. PT HAS NO S/S OF DISTRESS. ASSISTED PT WITH CALLING . WILL CPOC
[2018-08-08] VITALS: BP 149/88
--- NOTE | 2018-08-08 | NUR ---
WHILE IN ROOM TO GIVE MEDICATION AND REMOVE NGT. PT WANTED A PRINTED OUT ORDER AND TO SPEAK TO . PT SPOKE TO FOR 10 MINS TO CLARIFY THAT IT IS ALLOWED TO REMOVE NGT. ONCE PT WAS ACCEPTING NURSE TO REMOVE. REMOVED NGT. PLACED SCD'S ON PT AND PLACED FEET ON PILLOWS. PT ON 2L O2 NC. ZENDEJAS NOTED. WOUND VAC INTACT LOWER ABDOMEN MIDLINE. LEFT COLOSTOMY NOTED WITH LARGE STOMA AND DARK THIN STOOL. RIGHT TRIALYSIS DRSG NEEDING CHANGED. PLACED A NEW DRSG. PT COULD NOT EXPLAIN WHY HE HAS A TRIALYSIS AND DID NOT GET IT IN REPORT. WILL CHECK NOTES. PT GIVEN APPLE JUICE AND ICE, SMALL CUP OF BEEF BROTH. CALL LIGHT INREACH. STEVE WILL CPOC
--- NOTE | 2018-08-08 00:09 | NUR ---
PT FSBS IS 193 8 UNITS GIVEN ORDERED. PT GIVEN A SMALL AMOUNT OF BEEF BROTH. STILL EATING ICE CHIPS. WILL TYPE A DIFFERENT NOTE FOR SITUATION IN ROOM. WILL CPOC
[2018-08-08 04:00] VITALS: BP 144/848
[2018-08-08 05:34] LABS: BASOPHILS 0.1 % (0-2); EOSINOPHILS 3.8 % (0-7); HEMATOCRIT 30.4 % (42.0-54.0); HEMOGLOBIN 9.6 g/dL (13.5-17.5); IMMATURE GRANULOCYTES 0.3 % (0-5); LYMPHOCYTES 9.4 % (15-50); MCH 31.4 pg (26.0-34.0); MCHC 31.6 g/dL (31.0-37.0); MCV 99.3 fL (80.0-100.0); MEAN PLATELET VOLUME 11.8 fL (7.4-10.4); MONOCYTES 4.1 % (2-11); NEUTROPHILS 82.3 % (40-80); RBC 3.06 10x6/uL (4.20-6.10); WBC 6.8 10x3/uL (4.8-10.8)
[2018-08-08 05:43] LABS: PLATELET COUNT 221 10x3/uL (130-400)
[2018-08-08 06:10] LABS: CALCIUM 8.1 mg/dL (8.5-10.1); CARBON DIOXIDE 31.6 mmol/L (21.0-32.0); CREATININE - SERUM 4.6 mg/dL (0.6-1.3); POTASSIUM - SERUM 3.1 mmol/L (3.5-5.1)
[2018-08-08 06:12] LABS: ANION GAP 13.5 mmol/L (8-16)
--- NOTE | 2018-08-08 07:05 | NUR ---
PT FSBS 306 20 UNITS GIVEN ORDERED. PT ALERT. CONFUSED. SEEMS MORE ORIENTED THIS MORNING. PT WILL CALL FOR ASSIST WHEN NEEDED. WILL CPOC
--- NOTE | 2018-08-08 07:10 | MORECARE ---
CASE MANAGEMENT DISCHARGE SUMMARY PATIENT: REMIGIO SANDERS UNIT: [id number] ADM DATE: 08/03/18 AGE: 63 : 59 SEX: M ROOM/BED: D.2110 AUTHOR: JOSEY,DOC PHYSICIAN: REFERRING PHYSICIAN: MARY SMALLS MD DATE OF SERVICE: 08/08/18 Discharge Plan Patient Name: REMIGIO SANDERS Facility: [facility]:[place] : 1955 Planned Disposition: Home with Home Health Anticipated Discharge Date: Discharge Date: Expected LOS: Initial Reviewer: [email or web address] Initial Review Date: 08/06/2018 Generated: 08/08/18 8:10 am DCP- Discharge Planning Updated by [id number]: rFanca Campbell on 08/06/18 12:[address] Patient Name: REMIGIO SANDERS Admission Status: Elective Accout number: [id number] Admission Date: 08-03-2018 : 1955 Admission Diagnosis:PARASTOMAL HERNIA WITH OBSTRUCTION, WITHOUT GANGRENE Attending: MARY SMALLS Current LOS: 3 Anticipated DC Date: Planned Disposition: Home with Home Health Primary Insurance: MEDICARE A & B Discharge Planning Comments: CM met with patient to discuss discharge planning, he is alone in the room. States he is unable to answer any of my questions because of his sore throat and asks me to call his . I called his for discharge planning. She states he lives independently with her. She states their son and daughter in law live on the same property in their own house. I discussed the availability of rehab services, home health and additional DME if needed. They already get ostomy supplies from [employer] in the mail. She states the plan right now is to go home with [facility] in [place]. CM will set this up closer to time. JOHN placed on chart. CM will continue to follow and assist with discharge planning/needs. Geotechnical Engineer: Franca Campbell DCPIA - Discharge Planning Initial Assessment Updated by [email or web address]: Franca Campbell on 08/06/18 1:25 pm * Is the patient Alert and Oriented? Yes * How many steps to enter\exit or inside your home? 0/0 * PCP Livia Lopez at [facility] in [place] * Pharmacy [facility] in [place] or [place] * Preadmission Environment Home with Family * ADLs Independent * Equipment Ostomy Supplies * List name and contact numbers for known caregivers / representatives who currently or will assist patient after discharge: Gela Sanders - - [phone] * Verbal permission to speak to the caregivers and representatives has been obtained from the patient. Yes * Community resources currently utilized None * Please name any agencies selected above. Mail order from [employer] for Ostomy supplies * Additional services required to return to the preadmission environment? Yes * Can the patient safely return to the preadmission environment? Yes * Has this patient been hospitalized within the prior 30 days at any hospital? No Coverage Notice Reviewer: [email or web address] Ros Campbell Notice Issued Date-Time: 08/06/2018 13:31 Notice Type: Patient Choice Letter Notice Delivered To: Family Member Relationship to Patient: Spouse Junior Oracle Dba Name: Gela Delivery Method: PHONE - Phone Jes Days: Prior Verbal Notification: Recipient Understood Notice: Yes Recipient Signature: Med Rec Note Co-signed by Attending: Coverage Notice Comment: JOHN for [facility] in [place] Last DP export: 08/06/18 12:29 p Patient Name: REMIGIO SANDERS Page [id number] at 0710 All edits/amendments must be made on the electronic document DICTATION DATE: 08/08/18709 MANAGER OPERATIONAL: AMITA 08/08/18709 RPT#: [id number] DC DATE: STATUS: ADM IN [facility] [address] [place] [address] END OF REPORT
[2018-08-08 08:06] VITALS: BP 149/71
[2018-08-08 11:45] VITALS: BP 140/71
--- NOTE | 2018-08-08 19:30 | NUR ---
AROUSES AND DEMANDS SEVERAL THINGS THAT HE NEEDS ...DID BEST TO PROVIDE ITEMS AND ASSISTED WITH COMFORT. BED LOW AND CALL LIGHT IN REACH. LCTA AND BOWEL SOUNDS WNL COLOSTOMY NOTED
[2018-08-08 20:00] VITALS: BP 136/89
[2018-08-09 04:00] VITALS: BP 154/94
[2018-08-09 05:47] LABS: BASOPHILS 0.2 % (0-2); EOSINOPHILS 8.7 % (0-7); HEMATOCRIT 29.7 % (42.0-54.0); HEMOGLOBIN 9.4 g/dL (13.5-17.5); IMMATURE GRANULOCYTES 0.5 % (0-5); LYMPHOCYTES 8.9 % (15-50); MCH 31.2 pg (26.0-34.0); MCHC 31.6 g/dL (31.0-37.0); MCV 98.7 fL (80.0-100.0); MONOCYTES 5.4 % (2-11); NEUTROPHILS 76.3 % (40-80); PLATELET COUNT 225 10x3/uL (130-400); RBC 3.01 10x6/uL (4.20-6.10); RDW 13.2 % (11.5-14.5); WBC 6.1 10x3/uL (4.8-10.8)
[2018-08-09 06:20] LABS: BILIRUBIN - TOTAL 0.61 mg/dL (0.2-1.3); CARBON DIOXIDE 32.9 mmol/L (21.0-32.0); PROTEIN - SERUM 5.9 g/dL (6.4-8.2)
[2018-08-09 06:38] LABS: ANION GAP 12.9 mmol/L (8-16); CREATININE - SERUM 3.4 mg/dL (0.6-1.3)
[2018-08-09 06:39] LABS: POTASSIUM - SERUM 2.8 mmol/L (3.5-5.1)
[2018-08-09 07:44] VITALS: BP 148/78
[2018-08-09 11:18] VITALS: BP 146/91
--- NOTE | 2018-08-09 13:01 | NUR ---
Nutrition Follow Up: Chart reviewed. Diet has been advanced to full liquids today per surgery. Meds and labs reviewed No new wt Rec continue advancing NAVEED as medically feasible. RD following.
[2018-08-09 16:12] VITALS: BP 114/70
[2018-08-09 17:01] LABS: ANION GAP 13.9 mmol/L (8-16); CALCIUM 7.4 mg/dL (8.5-10.1); CARBON DIOXIDE 30.5 mmol/L (21.0-32.0); CREATININE - SERUM 3.1 mg/dL (0.6-1.3)
[2018-08-09 17:10] LABS: POTASSIUM - SERUM 3.4 mmol/L (3.5-5.1)
--- NOTE | 2018-08-09 19:40 | NUR ---
EVENING ROUNDS COMPLETED. REPORT RECEIVED. PT SITTING UP IN BED WITH EYES CLOSED, RR EVEN AND UNLABORED. OXYGEN AT 2 LITERS BY NASAL CANNULA. NO S/S OF DISTRESS NOTED. WHITE BOARD UPDATED. SIDE RAILS UP X2. CALL LIGHT IN REACH. WILL CTM.
[2018-08-09 20:42] LABS: ANION GAP 9.6 mmol/L (8-16); CALCIUM 7.9 mg/dL (8.5-10.1); CARBON DIOXIDE 33.5 mmol/L (21.0-32.0); POTASSIUM - SERUM 3.1 mmol/L (3.5-5.1)
[2018-08-09 21:01] VITALS: BP 133/70
--- NOTE | 2018-08-09 21:36 | NUR ---
395 BLOOD SUAGR TREATED ORDERED. IX ABX INFUSING. PT SITTING UP IN BED WITH EYES OPEN, DENIES FURTHER NEEDS. CALL LIGHT IN REACH. 1200 MLS EMPTIED FROM ZENDEJAS CATHETER, LIGHT YELLOW IN APPEARANCE. WILL CTM.
[2018-08-10] VITALS (7 sets, daily range): BP systolic 128–162; BP diastolic 62–92
--- NOTE | 2018-08-10 02:58 | NUR ---
I have reviewed this patient and I concur with the Shift Assessment completed by the Licensed Practical Nurse today this shift.
[2018-08-10 04:58] LABS: BASOPHILS 0.2 % (0-2); EOSINOPHILS 7.2 % (0-7); HEMATOCRIT 29.7 % (42.0-54.0); HEMOGLOBIN 9.5 g/dL (13.5-17.5); IMMATURE GRANULOCYTES 0.6 % (0-5); LYMPHOCYTES 8.6 % (15-50); MCV 97.1 fL (80.0-100.0); MEAN PLATELET VOLUME 12.1 fL (7.4-10.4); MONOCYTES 6.1 % (2-11); NEUTROPHILS 77.3 % (40-80); PLATELET COUNT 197 10x3/uL (130-400); RBC 3.06 10x6/uL (4.20-6.10); RDW 12.8 % (11.5-14.5); WBC 6.4 10x3/uL (4.8-10.8)
[2018-08-10 05:23] LABS: ALBUMIN 1.9 g/dL (3.4-5.0); BILIRUBIN - TOTAL 0.74 mg/dL (0.2-1.3); CALCIUM 7.7 mg/dL (8.5-10.1); CARBON DIOXIDE 30.1 mmol/L (21.0-32.0); CREATININE - SERUM 2.5 mg/dL (0.6-1.3); PROTEIN - SERUM 5.8 g/dL (6.4-8.2)
[2018-08-10 05:28] LABS: ANION GAP 10.6 mmol/L (8-16); POTASSIUM - SERUM 3.7 mmol/L (3.5-5.1)
--- NOTE | 2018-08-10 07:50 | NUR ---
RECIEVE REPORT. PATIENT IS AWAKE AND ALERT AT THIS TIME. HE REPORTS THAT HE WOULD LIKE TO GET UP SOON AND PUT SOME PANTS ON. DENIES ANY OTHER NEEDS AT THIS TIME.
--- NOTE | 2018-08-10 12:20 | NUR ---
BLOOD SUGAR IS 461 GAVE 28 U INSULIN ORDERED. PAGING LATESHA FIGUEROA TO REPORT THE BLOOD SUGAR.
--- NOTE | 2018-08-10 12:27 | NUR ---
REPORTED BLOOD SUGAR TO LATESHA.
--- NOTE | 2018-08-10 12:28 | NUR ---
PATIENT IS ALERT AND ORIENTED. SHE IS SITTING UP IN BED AND EATTING LUNCH. SHE HAS SEVERAL SMALL SORES ON HER BUTTOCK AND HAVE BEEN KEEPING HER TURNED Q 2 HOURS TO KEEP THE PRESSURE OFF AND KEEP HER SKIN CLEAN AND DRY.
[2018-08-10 12:32] LABS: ANION GAP 10.4 mmol/L (8-16); CARBON DIOXIDE 29.7 mmol/L (21.0-32.0); CREATININE - SERUM 2.4 mg/dL (0.6-1.3); POTASSIUM - SERUM 4.1 mmol/L (3.5-5.1)
--- NOTE | 2018-08-10 15:10 | NUR ---
PATIENT REPORTS WITH HIGH BLOOD SUGAR HE GETS GREEN AND BLUE OUTLINES AROUND THINGS IN HIS VISION. COLORS BECOME DISTORTED. HE REPORTS THAT AN HOUR AFTER TREATING HIS BLOOD SUGAR THAT THE COLORFUL OUTLINES AROUND OBJECTS WERE REDUCED WHEN HIS BLOOD SUGAR STABILIZED. HE IS RESTING QUIETLY AT THIS TIME.
[2018-08-10 16:45] LABS: ANION GAP 13.3 mmol/L (8-16); CALCIUM 7.8 mg/dL (8.5-10.1); CARBON DIOXIDE 28.3 mmol/L (21.0-32.0); CREATININE - SERUM 2.4 mg/dL (0.6-1.3); POTASSIUM - SERUM 3.6 mmol/L (3.5-5.1)
--- NOTE | 2018-08-10 18:15 | NUR ---
I have reviewed this patient and I concur with the Shift Assessment completed by the Licensed Practical Nurse today this shift.
--- NOTE | 2018-08-10 19:31 | NUR ---
EVENING ROUNDS COMPLETED. REPORT RECEIVED. PT SITTING UP IN BED WITH EYES OPEN, RR EVEN AND UNLABORED. BED IN LOW POSITION. NO S/S OF DISTRESS. OXYGEN AT 2 LITERS BY NASAL CANNULA. INTRODUCED SELF TO PT. PT DENIES FURTHER NEEDS AT THIS TIME. 600 MLS LIGHT YELLOW OUTPUT EMPTIED FROM ZENDEJAS. D5W AND D5 1/2 NS WITH 40 MEQ/K INFUSING THROUGH RIGHT JUGULAR TRIALYSIS ORDERED. CALL LIGHT IN REACH. WILL CTM.
[2018-08-10 20:26] LABS: ANION GAP 11.1 mmol/L (8-16); CALCIUM 8.3 mg/dL (8.5-10.1); CARBON DIOXIDE 27.4 mmol/L (21.0-32.0); CREATININE - SERUM 2.1 mg/dL (0.6-1.3); POTASSIUM - SERUM 3.5 mmol/L (3.5-5.1)
--- NOTE | 2018-08-11 03:35 | NUR ---
I have reviewed this patient and I concur with the Shift Assessment completed by the Licensed Practical Nurse today this shift.
[2018-08-11 04:32] LABS: BASOPHILS 0.3 % (0-2); EOSINOPHILS 7.3 % (0-7); HEMATOCRIT 27.5 % (42.0-54.0); MCH 31.1 pg (26.0-34.0); MCHC 32.7 g/dL (31.0-37.0); MCV 95.2 fL (80.0-100.0); MEAN PLATELET VOLUME 11.8 fL (7.4-10.4); MONOCYTES 6.3 % (2-11); NEUTROPHILS 76.1 % (40-80); PLATELET COUNT 197 10x3/uL (130-400); RBC 2.89 10x6/uL (4.20-6.10); RDW 12.2 % (11.5-14.5); WBC 7.6 10x3/uL (4.8-10.8)
[2018-08-11 04:47] LABS: ALBUMIN 1.9 g/dL (3.4-5.0); ANION GAP 10.9 mmol/L (8-16); BILIRUBIN - TOTAL 0.66 mg/dL (0.2-1.3); CARBON DIOXIDE 26.7 mmol/L (21.0-32.0); CREATININE - SERUM 1.9 mg/dL (0.6-1.3); POTASSIUM - SERUM 3.6 mmol/L (3.5-5.1); PROTEIN - SERUM 5.7 g/dL (6.4-8.2)
[2018-08-11 05:51] VITALS: BP 168/74
[2018-08-11 09:54] VITALS: BP 145/89
[2018-08-11 12:46] VITALS: BP 138/85
[2018-08-11 18:31] VITALS: BP 147/84
--- NOTE | 2018-08-11 19:28 | NUR ---
EVENING ROUNDS COMPLETED. REPORT RECEIVED. PT SITTING UP IN BED WITH EYES CLOSED, RR EVEN AND UNLABORED. AT BEDSIDE. 500 MLS LIGHT YELLOW OUTPUT EMPTIED FROM ZENDEJAS CATHETER. 1/2 NS INFUSING ORDERED THROUGH RIGHT IJ TRIALYSIS. NO S/S OF DISTRESS NOTED. CALL LIGHT IN REACH. WILL CTM.
[2018-08-11 20:07] VITALS: BP 151/87
[2018-08-12 00:02] VITALS: BP 170/84
--- NOTE | 2018-08-12 04:24 | NUR ---
I have reviewed this patient and I concur with the Shift Assessment completed by the Licensed Practical Nurse today this shift.
[2018-08-12 06:01] VITALS: BP 164/80
[2018-08-12 07:48] VITALS: BP 132/74
[2018-08-12 10:13] LABS: HEMATOCRIT 29.4 % (42.0-54.0); HEMOGLOBIN 9.8 g/dL (13.5-17.5); MCH 31.1 pg (26.0-34.0); MCHC 33.3 g/dL (31.0-37.0); MCV 93.3 fL (80.0-100.0); MEAN PLATELET VOLUME 12.4 fL (7.4-10.4); RBC 3.15 10x6/uL (4.20-6.10); RDW 12.1 % (11.5-14.5)
[2018-08-12 10:19] LABS: PLATELET COUNT 258 10x3/uL (130-400); WBC 9.6 10x3/uL (4.8-10.8)
[2018-08-12 10:21] LABS: POTASSIUM - SERUM 3.7 mmol/L (3.5-5.1)
[2018-08-12 10:31] LABS: ANION GAP 13.7 mmol/L (8-16); CALCIUM 8.6 mg/dL (8.5-10.1); CREATININE - SERUM 1.8 mg/dL (0.6-1.3)
[2018-08-12 10:45] LABS: EOSINOPHILS 1 % (0-7); LYMPHOCYTES 10 % (15-50); MONOCYTES 2 % (2-11); NEUTROPHILS 86 % (40-80); PLATELET ESTIMATE NORMAL
[2018-08-12 11:20] VITALS: BP 137/87
[2018-08-12] MEDS ORDERED: AUGMENTIN 875-11 TAB PO (11:36)
[2018-08-12] MEDS ORDERED: HYDROCODON-ACE1 EAC7 PO (11:36)
--- NOTE | 2018-08-12 12:09 | MORECARE ---
CASE MANAGEMENT DISCHARGE SUMMARY PATIENT: REMIGIO SANDERS UNIT: [id number] ADM DATE: 08/03/18 AGE: 63 : 59 SEX: M ROOM/BED: D.2110 AUTHOR: JOSEY,DOC PHYSICIAN: REFERRING PHYSICIAN: MARY SMALLS MD DATE OF SERVICE: 08/12/18 Discharge Plan Patient Name: REMIGIO SANDERS Facility: [facility]:[place] : 1955 Planned Disposition: Home with Home Health Anticipated Discharge Date: Discharge Date: Expected LOS: Initial Reviewer: [email or web address] Initial Review Date: 08/06/2018 Generated: 08/12/18 1:08 pm DCP- Discharge Planning Updated by [id number]: Franca Campbell on 08/06/18 12:[address] Patient Name: REMIGIO SANDERS Admission Status: Elective Accout number: [id number] Admission Date: 08-03-2018 : 1955 Admission Diagnosis:PARASTOMAL HERNIA WITH OBSTRUCTION, WITHOUT GANGRENE Attending: MARY SMALLS Current LOS: 3 Anticipated DC Date: Planned Disposition: Home with Home Health Primary Insurance: MEDICARE A & B Discharge Planning Comments: CM met with patient to discuss discharge planning, he is alone in the room. States he is unable to answer any of my questions because of his sore throat and asks me to call his . I called his for discharge planning. She states he lives independently with her. She states their son and daughter in law live on the same property in their own house. I discussed the availability of rehab services, home health and additional DME if needed. They already get ostomy supplies from [employer] in the mail. She states the plan right now is to go home with [facility] in [place]. CM will set this up closer to time. JOHN placed on chart. CM will continue to follow and assist with discharge planning/needs. Gasfitter: Franca Campbell DCPIA - Discharge Planning Initial Assessment Updated by [id number]: Franca Campbell on 08/06/18 1:25 pm * Is the patient Alert and Oriented? Yes * How many steps to enter\exit or inside your home? 0/0 * PCP Livia Lopez at [facility] in [place] * [facility] in [place] or [place] * Preadmission Environment Home with Family * ADLs Independent * Equipment Ostomy Supplies * List name and contact numbers for known caregivers / representatives who currently or will assist patient after discharge: Gela Sanders - - [phone] * Verbal permission to speak to the caregivers and representatives has been obtained from the patient. Yes * Community resources currently utilized None * Please name any agencies selected above. Mail order from [employer] for Ostomy supplies * Additional services required to return to the preadmission environment? Yes * Can the patient safely return to the preadmission environment? Yes * Has this patient been hospitalized within the prior 30 days at any hospital? No External Providers [facility] Next Contact Date: Service Request Date: Service Type: Resolution: Reviewer: Comments: Coverage Notice Reviewer: [email or web address] Ros Campbell Notice Issued Date-Time: 08/06/2018 13:31 Notice Type: Patient Choice Letter Notice Delivered To: Family Member Relationship to Patient: Spouse Cut Out Stitcher Name: Gela Delivery Method: PHONE - Phone Jes Days: Prior Verbal Notification: Recipient Understood Notice: Yes Recipient Signature: Med Rec Note Co-signed by Attending: Coverage Notice Comment: JOHN for [facility] in [place] Last DP export: 08/08/18 6:10 a Patient Name: REMIGIO SANDERS Page [phone] at 1209 All edits/amendments must be made on the electronic document DICTATION DATE: 08/12/181207 NURSING HOME MANAGER: AMITA 08/12/18 1208 RPT#: [id number] [place] DATE: STATUS: ADM IN [facility] [address] [place] [address] END OF REPORT
--- NOTE | 2018-08-12 12:22 | MORECARE ---
CASE MANAGEMENT DISCHARGE SUMMARY PATIENT: REMIGIO SANDERS UNIT: [id number] ADM DATE: 08/03/18 AGE: 63 : 59 SEX: M ROOM/BED: D.2110 AUTHOR: JOSEY,DOC PHYSICIAN: REFERRING PHYSICIAN: MARY SMALLS MD DATE OF SERVICE: 08/12/18 Discharge Plan Patient Name: REMIGIO SANDERS Facility: [facility]:[place] : 1955 Planned Disposition: Home with Home Health Anticipated Discharge Date: Discharge Date: Expected LOS: Initial Reviewer: [email or web address] Initial Review Date: 08/06/2018 Generated: 08/12/18 1:22 pm DCP- Discharge Planning Updated by [email or web address]: Franca Campbell on 08/06/18 12:[address] Patient Name: REMIGIO SANDERS Admission Status: Elective Accout number: [id number] Admission Date: 08-03-2018 : 1955 Admission Diagnosis:PARASTOMAL HERNIA WITH OBSTRUCTION, WITHOUT GANGRENE Attending: MARY SMALLS Current LOS: 3 Anticipated DC Date: Planned Disposition: Home with Home Health Primary Insurance: MEDICARE A & B Discharge Planning Comments: CM met with patient to discuss discharge planning, he is alone in the room. States he is unable to answer any of my questions because of his sore throat and asks me to call his . I called his for discharge planning. She states he lives independently with her. She states their son and daughter in law live on the same property in their own house. I discussed the availability of rehab services, home health and additional DME if needed. They already get ostomy supplies from [employer] in the mail. She states the plan right now is to go home with [facility] in [place]. CM will set this up closer to time. JOHN placed on chart. CM will continue to follow and assist with discharge planning/needs. Ticket Sales Agent: Franca Campbell DCPIA - Discharge Planning Initial Assessment Updated by [email or web address]: Franca Campbell on 08/06/18 1:25 pm * Is the patient Alert and Oriented? Yes * How many steps to enter\exit or inside your home? 0/0 * PCP Livia Lopez at [facility] in [place] * [facility] in [place] or [place] * Preadmission Environment Home with Family * ADLs Independent * Equipment Ostomy Supplies * List name and contact numbers for known caregivers / representatives who currently or will assist patient after discharge: Gela Sanders - - [phone] * Verbal permission to speak to the caregivers and representatives has been obtained from the patient. Yes * Community resources currently utilized None * Please name any agencies selected above. Mail order from [place] for Ostomy supplies * Additional services required to return to the preadmission environment? Yes * Can the patient safely return to the preadmission environment? Yes * Has this patient been hospitalized within the prior 30 days at any hospital? No External Providers External Provider: [facility] [employer] Next Contact Date: Service Request Date: Service Type: Resolution: Reviewer: Comments: Coverage Notice Reviewer: [email or web address] Ros Campbell Notice Issued Date-Time: 08/06/2018 13:31 Notice Type: Patient Choice Letter Notice Delivered To: Family Member Relationship to Patient: Spouse Medical Laboratory Manager Name: Gela Delivery Method: PHONE - Phone Jes Days: Prior Verbal Notification: Recipient Understood Notice: Yes Recipient Signature: Med Rec Note Co-signed by Attending: Coverage Notice Comment: JOHN for [facility] in [place] Last DP export: 08/12/18 11:09 a Patient Name: REMIGIO SANDERS Page [phone] at 1222 All edits/amendments must be made on the electronic document DICTATION DATE: 08/12/18 1222 VEGETABLE GROWER: AMITA 08/12/18 1222 RPT#: [id number] [place] DATE: STATUS: ADM IN [facility] [address] [place] [address] END OF REPORT
--- NOTE | 2018-08-12 14:51 | MORECARE ---
CASE MANAGEMENT DISCHARGE SUMMARY PATIENT: REMIGIO SANDERS UNIT: [id number] ADM DATE: 08/03/18 AGE: 63 : 59 SEX: M ROOM/BED: D.2110 AUTHOR: JOSEY,DOC PHYSICIAN: REFERRING PHYSICIAN: MARY SMALLS MD DATE OF SERVICE: 08/12/18 Discharge Plan Patient Name: REMIGIO SANDERS Facility: [facility]:[place] : 1955 Planned Disposition: Home with Home Health Anticipated Discharge Date: Discharge Date: Expected LOS: Initial Reviewer: [email or web address] Initial Review Date: 08/06/2018 Generated: 08/12/18 3:51 pm Comments DCP- Discharge Planning Updated by [email or web address]: Renée Barnes on 08/12/18 1:[address] Patient Name: REMIGIO SANDERS Admission Status: Elective Accout number: [id number] Admission Date: 08-03-2018 : 1955 Admission Diagnosis:PARASTOMAL HERNIA WITH OBSTRUCTION, WITHOUT GANGRENE Attending: MARY SMALLS Current LOS: 9 Anticipated DC Date: Planned Disposition: Home with Home Health Primary Insurance: MEDICARE A & B Discharge Planning Comments: SAV WITH [facility] IN [facility] WILL START CARE SUN. CM WILL FAX DC DOCUMENTS TO [facility]. CM WAITING FOR AUTHORIZATION OF WOUND VAC FROM [facility] AT THIS TIME. PATIENT EXPECTED TO DC TODAY. CM TO FOLLOW AND ASSIST NEEDED WITH DC PLANNING/NEEDS. Slug Press Operator: Renée Barnes Appended by Renée Barnes on 08/12/2018 14:51 CDT: DENAE FIGUEROA STATES PATIENT WILL STAY ANOTHER DAY DUE TO CR LEVEL. DCP- Discharge Planning Updated by [id number]: Franca Campbell on 08/06/18 12:[address] Patient Name: REMIGIO SANDERS Admission Status: Elective Accout number: [id number] Admission Date: 08-03-2018 : 1955 Admission Diagnosis:PARASTOMAL HERNIA WITH OBSTRUCTION, WITHOUT GANGRENE Attending: MARY SMALLS Current LOS: 3 Anticipated DC Date: Planned Disposition: Home with Home Health Primary Insurance: MEDICARE A & B Discharge Planning Comments: CM met with patient to discuss discharge planning, he is alone in the room. States he is unable to answer any of my questions because of his sore throat and asks me to call his . I called his for discharge planning. She states he lives independently with her. She states their son and daughter in law live on the same property in their own house. I discussed the availability of rehab services, home health and additional DME if needed. They already get ostomy supplies from [employer] in the mail. She states the plan right now is to go home with [facility] in [place]. CM will set this up closer to time. JOHN placed on chart. CM will continue to follow and assist with discharge planning/needs. Slug Press Operator: Franca Campbell [facility] - Discharge Planning Initial Assessment Updated by [email or web address]: Franca Campbell on 08/06/18 1:25 pm * Is the patient Alert and Oriented? Yes * How many steps to enter\exit or inside your home? 0/0 * PCP Livia Lopez at [facility] in [place] * Pharmacy [facility] clinic in [place] or [place] * Preadmission Environment Home with Family * ADLs Independent * Equipment Ostomy Supplies * List name and contact numbers for known caregivers / representatives who currently or will assist patient after discharge: Gela Sanders - - [phone] * Verbal permission to speak to the caregivers and representatives has been obtained from the patient. Yes * Community resources currently utilized None * Please name any agencies selected above. Mail order from [employer] for Ostomy supplies * Additional services required to return to the preadmission environment? Yes * Can the patient safely return to the preadmission environment? Yes * Has this patient been hospitalized within the prior 30 days at any hospital? No Coverage Notice Reviewer: [email or web address] - Franca Campbell Notice Issued Date-Time: 08/06/2018 13:31 Notice Type: Patient Choice Letter Notice Delivered To: Family Member Relationship to Patient: Spouse Senior Java Data Architect Name: Gela Delivery Method: PHONE - Phone Jes Days: Prior Verbal Notification: Recipient Understood Notice: Yes Recipient Signature: Med Rec Note Co-signed by Attending: Coverage Notice Comment: JOHN for [facility] in [place] Last DP export: 08/12/18 11:22 a Patient Name: REMIGIO SANDERS Page [phone] at 1451 All edits/amendments must be made on the electronic document DICTATION DATE: 08/12/181450 MEDICAL AUDITOR: AMITA 08/12/181450 RPT#: [id number] [place] DATE: STATUS: ADM IN [facility] [address] [place] [address] END OF REPORT
--- NOTE | 2018-08-12 15:01 | MORECARE ---
CASE MANAGEMENT DISCHARGE SUMMARY PATIENT: REMIGIO SANDERS UNIT: [id number] ADM DATE: 08/03/18 AGE: 63 : 59 SEX: M ROOM/BED: D.2110 AUTHOR: JOSEY,DOC PHYSICIAN: REFERRING PHYSICIAN: MARY SMALLS MD DATE OF SERVICE: 08/12/18 Discharge Plan Patient Name: REMIGIO SANDERS Facility: [facility]:[place] : 1955 Planned Disposition: Home with Home Health Anticipated Discharge Date: Discharge Date: Expected LOS: Initial Reviewer: [id number] Initial Review Date: 08/06/2018 Generated: 08/12/18 4:01 pm Comments DCP- Discharge Planning Updated by [email or web address]: Renée Barnes on 08/12/18 1:[address] Patient Name: REMIGIO SANDERS Admission Status: Elective Accout number: [id number] Admission Date: 08-03-2018 : 1955 Admission Diagnosis:PARASTOMAL HERNIA WITH OBSTRUCTION, WITHOUT GANGRENE Attending: MARY SMALLS Current LOS: 9 Anticipated DC Date: Planned Disposition: Home with Home Health Primary Insurance: MEDICARE A & B Discharge Planning Comments: [facility] WITH [facility] IN [facility] WILL START CARE SUN. CM WILL FAX DC DOCUMENTS TO [facility]. CM WAITING FOR AUTHORIZATION OF WOUND VAC FROM [facility] AT THIS TIME. PATIENT EXPECTED TO DC TODAY. CM TO FOLLOW AND ASSIST NEEDED WITH DC PLANNING/NEEDS. Seed Service Advisor: Renée Barnes DCP- Discharge Planning Updated by [id number]: Franca Campbell on 08/06/18 12:[address] Patient Name: REMIGIO SANDERS Admission Status: Elective Accout number: [id number] Admission Date: 08-03-2018 : 1955 Admission Diagnosis:PARASTOMAL HERNIA WITH OBSTRUCTION, WITHOUT GANGRENE Attending: MARY SMALLS Current LOS: 3 Anticipated DC Date: Planned Disposition: Home with Home Health Primary Insurance: MEDICARE A & B Discharge Planning Comments: CM met with patient to discuss discharge planning, he is alone in the room. States he is unable to answer any of my questions because of his sore throat and asks me to call his . I called his for discharge planning. She states he lives independently with her. She states their son and daughter in law live on the same property in their own house. I discussed the availability of rehab services, home health and additional DME if needed. They already get ostomy supplies from [email or web address] in the mail. She states the plan right now is to go home with [facility] in [place]. CM will set this up closer to time. JOHN placed on chart. CM will continue to follow and assist with discharge planning/needs. Seed Service Advisor: Franca Shannan [facility] - Discharge Planning Initial Assessment Updated by [id number]: Franca Campbell on 08/06/18 1:25 pm * Is the patient Alert and Oriented? Yes * How many steps to enter\exit or inside your home? 0/0 * PCP Livia Lopez at [facility] in [place] * Pharmacy [facility] in [place] or [place] * Preadmission Environment Home with Family * ADLs Independent * Equipment Ostomy Supplies * List name and contact numbers for known caregivers / representatives who currently or will assist patient after discharge: Gela Sanders - - [phone] * Verbal permission to speak to the caregivers and representatives has been obtained from the patient. Yes * Community resources currently utilized None * Please name any agencies selected above. Mail order from [email or web address] for Ostomy supplies * Additional services required to return to the preadmission environment? Yes * Can the patient safely return to the preadmission environment? Yes * Has this patient been hospitalized within the prior 30 days at any hospital? No Coverage Notice Reviewer: [id number] - Franca Campbell Notice Issued Date-Time: 08/06/2018 13:31 Notice Type: Patient Choice Letter Notice Delivered To: Family Member Relationship to Patient: Spouse Monitor Car Operator Name: Gela Delivery Method: PHONE - Phone Jes Days: Prior Verbal Notification: Recipient Understood Notice: Yes Recipient Signature: Med Rec Note Co-signed by Attending: Coverage Notice Comment: JOHN for [facility] in [place] Last DP export: 08/12/18 1:51 p Patient Name: REMIGIO SANDERS Page [id number] at 1501 All edits/amendments must be made on the electronic document DICTATION DATE: 08/12/18 1501 TRACTOR OPERATOR BATTERY: AMITA 08/12/18 1501 RPT#: [id number] DC DATE: STATUS: ADM IN [facility] [address] [place] [address] END OF REPORT
--- NOTE | 2018-08-12 17:52 | NUR ---
ALERT AND ORIENTED X4. RESTING IN BED. WOUND VAC ARRIVES. PAGE TO INFORM WOUND VAC HERE SO FOR DRESSING CHANGE.
--- NOTE | 2018-08-12 19:15 | NUR ---
ALERT AND OX4 PTIS ON RA AT THIS TIME RT IJ IS SL. BED IS LOW AND LOCKED CALL LIGHT IS WITHIN REACH ... IS AT BEDSIDE
[2018-08-12 21:48] VITALS: BP 142/84
--- NOTE | 2018-08-13 03:41 | NUR ---
I have reviewed this patient and I concur with the Shift Assessment completed by the Licensed Practical Nurse today this shift.
[2018-08-13 05:55] VITALS: BP 138/85
--- NOTE | 2018-08-13 05:58 | NUR ---
PT AND RAISED THEIR VOICE WITH ME AND CLAIMED WE SHOULD NOT BE GIVING HIM INSULIN BECAUSE HE IS A TYPE 2 [employer] AND ONLY TYPE ONES GET INJECTIONS ATTEMPTS TO EXPLAIN MADE PT MORE UPSET GLUCOSE NOT CHECKED
[2018-08-13 06:13] LABS: ANION GAP 15.3 mmol/L (8-16); CALCIUM 8.5 mg/dL (8.5-10.1); CREATININE - SERUM 1.4 mg/dL (0.6-1.3); POTASSIUM - SERUM 3.3 mmol/L (3.5-5.1)
[2018-08-13 07:22] LABS: BASOPHILS 0.2 % (0-2); EOSINOPHILS 4.7 % (0-7); HEMATOCRIT 28.5 % (42.0-54.0); HEMOGLOBIN 9.6 g/dL (13.5-17.5); IMMATURE GRANULOCYTES 1.4 % (0-5); LYMPHOCYTES 9.1 % (15-50); MCH 31.5 pg (26.0-34.0); MCHC 33.7 g/dL (31.0-37.0); MCV 93.4 fL (80.0-100.0); MONOCYTES 7.8 % (2-11); NEUTROPHILS 76.8 % (40-80); PLATELET COUNT 282 10x3/uL (130-400); RBC 3.05 10x6/uL (4.20-6.10); RDW 12.5 % (11.5-14.5); WBC 9.7 10x3/uL (4.8-10.8)
[2018-08-13 08:07] VITALS: BP 140/96
--- NOTE | 2018-08-13 08:34 | MORECARE ---
CASE MANAGEMENT DISCHARGE SUMMARY PATIENT: REMIGIO SANDERS UNIT: [id number] ADM DATE: 08/03/18 AGE: 63 : 59 SEX: M ROOM/BED: D.2110 AUTHOR: JOSEY,DOC PHYSICIAN: REFERRING PHYSICIAN: MARY SMALLS MD DATE OF SERVICE: 08/13/18 Discharge Plan Patient Name: REMIGIO SANDERS Facility: [facility]:[place] : 1955 Planned Disposition: Home with Home Health Anticipated Discharge Date: 08/13/18 Discharge Date: Expected LOS: 10 Initial Reviewer: [email or web address] Initial Review Date: 08/06/2018 Generated: 08/13/18 9:34 am Comments DCP- Discharge Planning Updated by [id number]: Renée Barnes on 08/12/18 1:[address] Patient Name: REMIGIO SANDERS Admission Status: Elective Accout number: [id number] Admission Date: 08-03-2018 : 1955 Admission Diagnosis:PARASTOMAL HERNIA WITH OBSTRUCTION, WITHOUT GANGRENE Attending: MARY SMALLS Current LOS: 9 Anticipated DC Date: Planned Disposition: Home with Home Health Primary Insurance: MEDICARE A & B Discharge Planning Comments: [facility] WITH [facility] IN [facility] WILL START CARE SUN. CM WILL FAX DC DOCUMENTS TO [facility]. CM WAITING FOR AUTHORIZATION OF WOUND VAC FROM [facility] AT THIS TIME. PATIENT EXPECTED TO DC TODAY. CM TO FOLLOW AND ASSIST NEEDED WITH DC PLANNING/NEEDS. Box Coverer Hand: Renée Barnes DCP- Discharge Planning Updated by [id number]: Franca Campbell on 08/06/18 12:[address] Patient Name: REMIGIO SANDERS Admission Status: Elective Accout number: [id number] Admission Date: 08-03-2018 : 1955 Admission Diagnosis:PARASTOMAL HERNIA WITH OBSTRUCTION, WITHOUT GANGRENE Attending: MARY SMALLS Current LOS: 3 Anticipated DC Date: Planned Disposition: Home with Home Health Primary Insurance: MEDICARE A & B Discharge Planning Comments: CM met with patient to discuss discharge planning, he is alone in the room. States he is unable to answer any of my questions because of his sore throat and asks me to call his . I called his for discharge planning. She states he lives independently with her. She states their son and daughter in law live on the same property in their own house. I discussed the availability of rehab services, home health and additional DME if needed. They already get ostomy supplies from [employer] in the mail. She states the plan right now is to go home with [facility] in [place]. CM will set this up closer to time. JOHN placed on chart. CM will continue to follow and assist with discharge planning/needs. Box Coverer Hand: Franca Campbell [facility] - [facility]charge Planning Initial Assessment Updated by [id number]: Franca Campbell on 08/06/18 1:25 pm * Is the patient Alert and Oriented? Yes * How many steps to enter\exit or inside your home? 0/0 * PCP Livia Lopez at [facility] in [place] * Pharmacy [facility] in [place] or [place] * Preadmission Environment Home with Family * ADLs Independent * Equipment Ostomy Supplies * List name and contact numbers for known caregivers / representatives who currently or will assist patient after discharge: Gela Sanders - - [phone] * Verbal permission to speak to the caregivers and representatives has been obtained from the patient. Yes * Community resources currently utilized None * Please name any agencies selected above. Mail order from [employer] for Ostomy supplies * Additional services required to return to the preadmission environment? Yes * Can the patient safely return to the preadmission environment? Yes * Has this patient been hospitalized within the prior 30 days at any hospital? No Coverage Notice Reviewer: [id number] - Franca Campbell Notice Issued Date-Time: 08/06/2018 13:31 Notice Type: Patient Choice Letter Notice Delivered To: Family Member Relationship to Patient: Spouse Film Processor Name: Gela Delivery Method: PHONE - Phone Jes Days: Prior Verbal Notification: Recipient Understood Notice: Yes Recipient Signature: Med Rec Note Co-signed by Attending: Coverage Notice Comment: JOHN for [facility] in [place] Last DP export: 08/12/18 2:01 p Patient Name: REMIGIO SANDERS Page [id number] at 0834 All edits/amendments must be made on the electronic document DICTATION DATE: 08/13/18 0834 BONDING MACHINE TENDER: AMITA 08/13/18 0834 RPT#: [id number] DC DATE: STATUS: ADM IN [facility] [address] [facility] [place] [address] END OF REPORT
--- NOTE | 2018-08-13 09:34 | MORECARE ---
CASE MANAGEMENT DISCHARGE SUMMARY PATIENT: REMIGIO SANDERS UNIT: [id number] ADM DATE: 08/03/18 AGE: 63 : 59 SEX: M ROOM/BED: D.2110 AUTHOR: JOSEY,DOC PHYSICIAN: REFERRING PHYSICIAN: MARY SMALLS MD DATE OF SERVICE: 08/13/18 Discharge Plan Patient Name: REMIGIO SANDERS Facility: [facility]:[place] : 1955 Planned Disposition: Home with Home Health Anticipated Discharge Date: 08/13/18 Discharge Date: Expected LOS: 10 Initial Reviewer: [id number] Initial Review Date: 08/06/2018 Generated: 08/13/18 10:34 am Comments DCP- Discharge Planning Updated by [email or web address]: Renée Barnes on 08/12/18 1:[address] Patient Name: REMIGIO SANDERS Admission Status: Elective Accout number: [id number] Admission Date: 08-03-2018 : 1955 Admission Diagnosis:PARASTOMAL HERNIA WITH OBSTRUCTION, WITHOUT GANGRENE Attending: MARY SMALLS Current LOS: 9 Anticipated DC Date: Planned Disposition: Home with Home Health Primary Insurance: MEDICARE A & B Discharge Planning Comments: S[facility] WITH [facility] IN [facility] WILL START CARE SUN. CM WILL FAX DC DOCUMENTS TO [facility]. CM WAITING FOR AUTHORIZATION OF WOUND VAC FROM [facility] AT THIS TIME. PATIENT EXPECTED TO DC TODAY. CM TO FOLLOW AND ASSIST NEEDED WITH DC PLANNING/NEEDS. Science Job Titles: Renée Barnes DCP- Discharge Planning Updated by [id number]: Franca Campbell on 08/06/18 12:[address] Patient Name: REMIGIO SANDERS Admission Status: Elective Accout number: [id number] Admission Date: 08-03-2018 : 1955 Admission Diagnosis:PARASTOMAL HERNIA WITH OBSTRUCTION, WITHOUT GANGRENE Attending: MARY SMALLS Current LOS: 3 Anticipated DC Date: Planned Disposition: Home with Home Health Primary Insurance: MEDICARE A & B Discharge Planning Comments: CM met with patient to discuss discharge planning, he is alone in the room. States he is unable to answer any of my questions because of his sore throat and asks me to call his . I called his for discharge planning. She states he lives independently with her. She states their son and daughter in law live on the same property in their own house. I discussed the availability of rehab services, home health and additional DME if needed. They already get ostomy supplies from [employer] in the mail. She states the plan right now is to go home with [facility] in [place]. CM will set this up closer to time. JOHN placed on chart. CM will continue to follow and assist with discharge planning/needs. Science Job Titles: Franca Campbell [facility] - Discharge Planning Initial Assessment Updated by [id number]: Franca Campbell on 08/06/18 1:25 pm * Is the patient Alert and Oriented? Yes * How many steps to enter\exit or inside your home? 0/0 * PCP Livia Lopez at [facility] in [place] * Pharmacy [facility] in [place] or [place] * Preadmission Environment Home with Family * ADLs Independent * Equipment Ostomy Supplies * List name and contact numbers for known caregivers / representatives who currently or will assist patient after discharge: Gela Sanders - - [phone] * Verbal permission to speak to the caregivers and representatives has been obtained from the patient. Yes * Community resources currently utilized None * Please name any agencies selected above. Mail order from [employer] for Ostomy supplies * Additional services required to return to the preadmission environment? Yes * Can the patient safely return to the preadmission environment? Yes * Has this patient been hospitalized within the prior 30 days at any hospital? No Coverage Notice Reviewer: [id number] - Franca Campbell Notice Issued Date-Time: 08/06/2018 13:31 Notice Type: Patient Choice Letter Notice Delivered To: Family Member Relationship to Patient: Spouse Flotation Tank Operator Name: Gela Delivery Method: PHONE - Phone Jes Days: Prior Verbal Notification: Recipient Understood Notice: Yes Recipient Signature: Med Rec Note Co-signed by Attending: Coverage Notice Comment: JOHN for [facility] in [place] Last DP export: 08/13/18 7:34 a Patient Name: REMIGIO SANDERS Page [id number] at 0934 All edits/amendments must be made on the electronic document DICTATION DATE: 08/13/18 0934 SIDE PANEL HANGER: AMITA 08/13/18 0934 RPT#: [id number] DC DATE: STATUS: ADM IN [facility] [address] [facility] [place] [address] END OF REPORT
--- NOTE | 2018-08-13 09:41 | MORECARE ---
CASE MANAGEMENT DISCHARGE SUMMARY PATIENT: REMIGIO SANDERS UNIT: [id number] ADM DATE: 08/03/18 AGE: 63 : 59 SEX: M ROOM/BED: D.2110 AUTHOR: JOSEY,DOC PHYSICIAN: REFERRING PHYSICIAN: MARY SMALLS MD DATE OF SERVICE: 08/13/18 Discharge Plan Patient Name: REMIGIO SANDERS Facility: [facility]:[place] : 1955 Planned Disposition: Home with Home Health Anticipated Discharge Date: 08/13/18 Discharge Date: Expected LOS: 10 Initial Reviewer: [id number] Initial Review Date: 08/06/2018 Generated: 08/13/18 10:41 am Comments DCP- Discharge Planning Updated by [id number]: Uriel Messer on 08/13/18 8:[address] Patient Name: REMIGIO SANDERS Encounter No: [id number] : 1955 Primary Insurance: MEDICARE A & B Anticipated DC Date: 08-13-2018 Planned Disposition: Home with Home Health External Planned Provider: [facility] DCP follow-up note: CM RECEIVED DISCHARGE ORDER, ATTEMPTED TO SERVE PT IMPORTANT MESSAGE FROM [employer] IN ROOM, PT HAD DISCHARGED HOME ALREADY. TAYLOR SPOKE TO RN TAYLOR DAVIS WHO ADVISED THAT PT'S WOUND VAC HAD BEEN APPROVED AND DELIVERED YESTERDAY [facility] COMPLETED FOR DISCHARGE HOME YESTERDAY, 08-12-18. TAYLOR FAXED ORDER AND DISCHARGE INFORMATION TO [facility] AT [phone], CALLED AND NOTIFIED [facility] OF [facility] OF DISCHARGE HOME AT [phone]. EU[facility] TO ADMIT TOMORROW. Uriel Messer CASE MANAGEMENT DCP- Discharge Planning Updated by [id number]: Renée Davis on 08/12/18 1:[address] Patient Name: REMIGIO SANDERS Admission Status: Elective Accout number: [id number] Admission Date: 08-03-2018 : 1955 Admission Diagnosis:PARASTOMAL HERNIA WITH OBSTRUCTION, WITHOUT GANGRENE Attending: MARY SMALLS Current LOS: 9 Anticipated DC Date: Planned Disposition: Home with Home Health Primary Insurance: MEDICARE A & B Discharge Planning Comments: [facility] [place] [facility] WILL START CARE [facility]ED. CM WILL FAX DC DOCUMENTS TO [facility]. CM WAITING FOR AUTHORIZATION OF WOUND VAC FROM [facility] AT THIS TIME. PATIENT EXPECTED TO DC TODAY. CM TO FOLLOW AND ASSIST NEEDED WITH DC PLANNING/NEEDS. Box Finisher: Renée Davis DCP- Discharge Planning Updated by [email or web address]: Franca Campbell on 08/06/18 12:[address] Patient Name: REMIGIO SANDERS Admission Status: Elective Accout number: [id number] Admission Date: 08-03-2018 : 1955 Admission Diagnosis:PARASTOMAL HERNIA WITH OBSTRUCTION, WITHOUT GANGRENE Attending: MARY SMALLS Current LOS: 3 Anticipated DC Date: Planned Disposition: Home with Home Health Primary Insurance: MEDICARE A & B Discharge Planning Comments: CM met with patient to discuss discharge planning, he is alone in the room. States he is unable to answer any of my questions because of his sore throat and asks me to call his . I called his for discharge planning. She states he lives independently with her. She states their son and daughter in law live on the same property in their own house. I discussed the availability of rehab services, home health and additional DME if needed. They already get ostomy supplies from [employer] in the mail. She states the plan right now is to go home with [facility] in [place]. CM will set this up closer to time. JOHN placed on chart. CM will continue to follow and assist with discharge planning/needs. Box Finisher: Franca Campbell [facility] - Discharge Planning Initial Assessment Updated by [id number]: Franca Campbell on 08/06/18 1:25 pm * Is the patient Alert and Oriented? Yes * How many steps to enter\exit or inside your home? 0/0 * PCP Livia Lopez at [facility] in [place] * Pharmacy [facility] in [place] or [place] * Preadmission Environment Home with Family * ADLs Independent * Equipment Ostomy Supplies * List name and contact numbers for known caregivers / representatives who currently or will assist patient after discharge: Gela Sanders - - [phone] * Verbal permission to speak to the caregivers and representatives has been obtained from the patient. Yes * Community resources currently utilized None * Please name any agencies selected above. Mail order from [employer] for Ostomy supplies * Additional services required to return to the preadmission environment? Yes * Can the patient safely return to the preadmission environment? Yes * Has this patient been hospitalized within the prior 30 days at any hospital? No Coverage Notice Reviewer: [id number] Ros Campbell Notice Issued Date-Time: 08/06/2018 13:31 Notice Type: Patient Choice Letter Notice Delivered To: Family Member Relationship to Patient: Spouse Interactive Media Director Name: Gela Delivery Method: PHONE - Phone Jes Days: Prior Verbal Notification: Recipient Understood Notice: Yes Recipient Signature: Med Rec Note Co-signed by Attending: Coverage Notice Comment: JOHN for [facility] in [place] Last DP export: 08/13/18 8:34 a Patient Name: REMIGIO SANDERS Page [phone] at 0941 All edits/amendments must be made on the electronic document DICTATION DATE: 08/13/18939 MOTION PICTURE PROJECTIONIST APPRENTICE: AMITA 08/13/18939 RPT#: [id number] DC DATE: STATUS: ADM IN [facility] [address] [place] [address] END OF REPORT
--- NOTE | 2018-08-13 09:43 | NUR ---
ALERT AND ORIENTED X 4. SITTING UP IN BED. DC RT IJ TRIALYSIS TIP INTACT. PRESSURE HELD PER PROTOCOL. DISCHARGE INSTRUCTIONS GIVEN VERBALLY AND WRITTEN. ABDOMINAL WOUND VAC INTACT. FREE FROM AIR LEAKS. DISCHARGE PAPERS SIGNED ON CHART. ESCORT TO RIDE VIA WHEELCHAIR. REMAINS FREE FROM INJURY.
== END 2018-08-13 09:45 | disposition home health service (06) | DRG 330 ==
LOC: D.PAN 05:08 → D.MS 05:08 → D.PAN 08:00 → D.OPS 08:00 → D.MS 14:35 → D.PAN 08-03 05:54 → D.MS 08-03 05:55 → D.SDCHOLD 08-06 13:34 → D.MS 08-06 13:39 → D.M2 08-07 20:26
PROVIDERS: Anesthesiology; Internal Medicine Nephrology; ADMIT Surgery; ATTEND Surgery
PROC: 0D1N0Z4 Bypass Sigmoid Colon to Cutaneous, Open Approach (ICD-10-PCS; principal; 2018-08-02 08:00)
PROC: 0WUF4JZ Supplement Abdominal Wall with Synthetic Substitute, Percutaneous Endoscopic Approach (ICD-10-PCS; 2018-08-02 08:00)
PROC: 0WQF0ZZ Repair Abdominal Wall, Open Approach (ICD-10-PCS; 2018-08-02 08:00)
DX: K43.3 Parastomal hernia with obstruction, without gangrene (principal); N17.9 Acute kidney failure, unspecified; E87.0 Hyperosmolality and hypernatremia; K43.0 Incisional hernia with obstruction, without gangrene; E11.69 Type 2 diabetes mellitus with other specified complication; I10 Essential (primary) hypertension; E87.6 Hypokalemia; D64.9 Anemia, unspecified

== ENCOUNTER → 2018-08-20 11:38 | Outpatient (CLI) | payer MEDICARE ==
[~2018-08-20 11:38] MED LIST changes: +AUGMENTIN 875-11 TAB PO; +PRAVACHOL20 MG PO
[2018-08-20 12:38] LABS: BASOPHILS 0.3 % (0-2); EOSINOPHILS 1.2 % (0-7); HEMATOCRIT 35.9 % (42.0-54.0); IMMATURE GRANULOCYTES 0.6 % (0-5); LYMPHOCYTES 10.6 % (15-50); MCH 31.3 pg (26.0-34.0); MCHC 33.4 g/dL (31.0-37.0); MCV 93.7 fL (80.0-100.0); MEAN PLATELET VOLUME 12.6 fL (7.4-10.4); MONOCYTES 3.8 % (2-11); NEUTROPHILS 83.5 % (40-80); RBC 3.83 10x6/uL (4.20-6.10); RDW 13.1 % (11.5-14.5); WBC 9.8 10x3/uL (4.8-10.8)
[2018-08-20 12:39] LABS: ALBUMIN 2.8 g/dL (3.4-5.0); ANION GAP 15.7 mmol/L (8-16); BILIRUBIN - DIRECT 0.06 mg/dL (0.00-0.30); BILIRUBIN - INDIRECT 0.24 mg/dL (0.00-1.00); BILIRUBIN - TOTAL 0.3 mg/dL (0.2-1.3); CALCIUM 8.9 mg/dL (8.5-10.1); CARBON DIOXIDE 24.4 mmol/L (21.0-32.0); CREATININE - SERUM 1.7 mg/dL (0.6-1.3); PLATELET COUNT 615 10x3/uL (130-400); POTASSIUM - SERUM 4.1 mmol/L (3.5-5.1); PRE-ALBUMIN 27.6 mg/dL (18.0-35.7); PROTEIN - SERUM 7.7 g/dL (6.4-8.2)
== END | disposition home or self-care (01) ==
LOC: D.LAB 11:38
PROVIDERS: Surgery
DX: N17.9 Acute kidney failure, unspecified (principal); C20 Malignant neoplasm of rectum